=== PATIENT | male | born 1935 ===

== ENCOUNTER 2021-06-15 20:19 | Inpatient (IN) | payer SELFPAY ==
[2021-06-15] MEDS ORDERED: ONDANSETRON 4 MG/2 ML INJ IV ONE (23:06)
[2021-06-15] MEDS ORDERED: SODIUM CHLORIDE 0.9% 500 ML 500 ML IV ONE (23:06)
[2021-06-15] MEDS ORDERED: MORPHINE 4 MG/1 ML INJ IV ONE (23:06)
--- NOTE | 2021-06-15 23:07 | Event Note ---
ED Screening Note Date of service: 06/15/21 Time: 23:05 ED Screening Note: 86-year-old male with a past medical history of diabetes and hypertension presents to the ER today with complaints of mainly upper abdominal pain. Onset a couple days ago. Intermittent in nature but feels like is getting worse and he feels bloated. Reports decreased appetite today. States that he has not had a bowel movement in 3 to 4 days and thought his symptoms were related to constipation and so has been trying wvwn-dmy-lramfpt MiraLAX and mag citrate without relief. He denies any urinary symptoms. He denies any fever or chills. He denies any chest pain or shortness of breath. He states that he does have the left ureteral stent from 16 years ago. He is also had stones removed from his right kidney but this was done surgically. He denies any other abdominal surgeries. This initial assessment/diagnostic orders/clinical plan/treatment(s) is/are subject to change based on patients health status, clinical progression and re- assessment by fellow clinical providers in the ED. Further treatment and workup at subsequent clinical providers discretion. Patient/guardian urged not to elope from the ED as their condition may be serious if not clinically assessed and managed. Initial orders include: Abdominal pain order set
[2021-06-15 23:37] LABS: Basophils % (Auto) 0.6 % (0.0-1.8); Eosinophils # (Auto) 0.8 K/mm3 (0.0-0.4); Eosinophils % (Auto) 12.8 % (0.0-4.3); Hemoglobin 15.1 gm/dl (11.8-15.2); Lymphocytes # (Auto) 1.4 K/mm3 (1.2-5.4); Mean Corpuscular HGB Conc 34 % (32-34); Mean Corpuscular Volume 89 fl (84-94); Monocytes # (Auto) 0.6 K/mm3 (0.0-0.8); Monocytes % (Auto) 9.1 % (0.0-7.3); Platelet Count 174 K/mm3 (140-440); Red Blood Count 5.08 M/mm3 (3.65-5.03); Red Cell Distribution Width 14.2 % (13.2-15.2)
--- NOTE | 2021-06-15 23:39 | Emergency Department Report ---
HPI - General Chief Complaint: Abdominal Pain Time Seen by Provider: 06/15/21 23:13 - HPI HPI: 86-year-old male presents to the emergency department with a 3-day history of abdominal pain and constipation. He denies any fever, nausea vomiting, diarrhea, dysuria, back pain. The patient says that he has had this issue multiple times in the past but usually comes and goes. He says that this time the discomfort feels "different." He also has a history of hypertension and seu-yjjbcaz-dlryiiwui diabetes, and he has a left-sided ureteral stent. The pa solomon has tried some magnesium citrate and MiraLAX for his symptoms without any relief. No recent travel or sick contacts at home. ED Past Medical Hx - Past Medical History Hx Hypertension: Yes Hx Diabetes: Yes Hx Arthritis: Yes Hx Kidney Stones: Yes - Surgical History Past Surgical History?: Yes Additional Surgical History: Kidney stents - Social History Smoking Status: Never Smoker Substance Use Type: None - Medications Home Medications: Home Medications Medication Instructions Recorded Confirmed Last Taken Type Docusate Sodium [Colace] 100 mg PO BID PRN #20 capsule 06/16/21 Unknown Rx Glucophage 500 mg PO BID 06/17/21 06/17/21 06/13/21 History Losartan [Cozaar] 100 mg PO QDAY 06/17/21 06/17/21 06/13/21 History ED Review of Systems ROS: Stated complaint: LT FLANK PAIN Other details as noted in HPI Comment: All other systems reviewed and negative Constitutional: denies: chills, fever Eyes: denies: eye pain, vision change ENT: denies: ear pain, throat pain Respiratory: denies: cough, shortness of breath Cardiovascular: denies: chest pain, palpitations Gastrointestinal: abdominal pain, constipation. denies: nausea, vomiting Genitourinary: denies: discharge Musculoskeletal: denies: back pain, arthralgia Skin: denies: rash, lesions Neurological: denies: headache, weakness Physical Exam - Physical Exam Vital Signs: Vital Signs 06/15/21 06/15/21 21:48 23:32 Temperature 98.6 F Pulse Rate 69 Respiratory 16 18 Rate Blood Pressure 219/94 [Right] O2 Sat by Pulse 98 Oximetry Physical Exam: GENERAL: The patient is well-developed well-nourished. HENT: Normocephalic. Atraumatic. Patient has moist mucous membranes. EYES: Extraocular motions are intact. NECK: Supple. Trachea is midline. CHEST/LUNGS: Clear to auscultation. There is no respiratory distress noted. HEART/CARDIOVASCULAR: Regular. There is no tachycardia. There is no murmur. ABDOMEN: Abdomen is soft. Unable to reproduce his abdominal tenderness to palpation, but the patient does have intermittent wincing pain. Patient has hyperactive bowel sounds. Mild lower abdominal distention. No palpable midline mass. SKIN: Skin is warm and dry. NEURO: The patient is awake, alert, and oriented. The patient is cooperative. The patient has no focal neurologic deficits. Normal speech. MUSCULOSKELETAL: There is no tenderness or deformity. There is no limitation range of motion. ED Course Vital Signs 06/15/21 06/15/21 21:48 23:32 Temperature 98.6 F Pulse Rate 69 Respiratory 16 18 Rate Blood Pressure 219/94 [Right] O2 Sat by Pulse 98 Oximetry - Consultations Consultation #1: 06/16/21 02:57 I spoke to the general surgeon on-call, Dr. Morales, regarding the patient's abdominal pain, laboratory studies, and most significantly the CT of the abdomen and pelvis. Given the patient's age, comorbidities, continued abdominal pain, and the CT findings of colitis with dilated colon, Dr. Morales agrees with the plan for an observational admission and she will consult on the patient. ED Medical Decision Making - Lab Data Result diagrams: 06/17/21 05:45 06/17/21 05:45 Lab Results 06/15/21 06/15/21 06/15/21 Range/Units 23:22 23:22 23:27 WBC 6.1 (4.5-11.0) K/mm3 RBC 5.08 H (3.65-5.03) M/mm3 Hgb 15.1 (11.8-15.2) gm/dl Hct 45.0 (35.5-45.6) % MCV 89 (84-94) fl MCH 30 (28-32) pg MCHC 34 (32-34) % RDW 14.2 (13.2-15.2) % Plt Count 174 (140-440) K/mm3 Lymph % (Auto) 23.0 (13.4-35.0) % [place] % (Auto) 9.1 H (0.0-7.3) % Eos % (Auto) 12.8 H (0.0-4.3) % Baso % (Auto) 0.6 (0.0-1.8) % Lymph # (Auto) 1.4 (1.2-5.4) K/mm3 [place] # (Auto) 0.6 (0.0-0.8) K/mm3 Eos # (Auto) 0.8 H (0.0-0.4) K/mm3 Baso # (Auto) 0.0 (0.0-0.1) K/mm3 Seg Neutrophils % 54.5 (40.0-70.0) % Seg Neutrophils # 3.3 (1.8-7.7) K/mm3 Sodium 133 L (137-145) mmol/L Potassium 4.4 (3.6-5.0) mmol/L Chloride 95.5 L (98-107) mmol/L Carbon Dioxide 27 (22-30) mmol/L Anion Gap 15 mmol/L BUN 20 (9-20) mg/dL Creatinine 1.5 H (0.8-1.3) mg/dL Estimated GFR 45 ml/min BUN/Creatinine Ratio 13 % Glucose 225 H (75-100) mg/dL Calcium 9.4 (8.4-10.2) mg/dL Total Bilirubin 0.30 (0.1-1.2) mg/dL Direct Bilirubin < 0.2 (0-0.2) mg/dL Indirect Bilirubin 0.1 mg/dL AST 15 (5-40) units/L ALT 11 (7-56) units/L Alkaline Phosphatase 137 H (35-129) units/L Troponin T < 0.010 (0.00-0.029) ng/mL Total Protein 8.1 (6.3-8.2) g/dL Albumin 4.3 (3.9-5) g/dL Albumin/Globulin Ratio 1.1 % Lipase 32 (13-60) units/L - Radiology Data Radiology results: report reviewed CT ABDOMEN AND PELVIS WITHOUT CONTRAST HISTORY: Pt complains of abdominal pain. COMPARISON: None. TECHNIQUE: CT images of the abdomen and pelvis were obtained without administration of intravenous contrast. All CT scans at this location are performed using CT dose reduction for ALARA by means of automated exposure control. FINDINGS: Lungs/bones: Lung bases are clear Abdomen/pelvis: Within limits of a noncontrast examination the liver, spleen, adrenal glands and pancreas appear normal. Extensive calcifications are seen within the left kidney with large norris ccation lower stones in lower pole. Small cyst along the upper pole. Left ureteral stent is identified. Large calcifications and densities within the urinary bladder There is significant dilatation of the colon with fecal material some fluid levels. Some gas towards the wall is seen however this appears to be gas within the lumen rather than within the wall. The dilatation extends from the cecum to the descending colon. Mild there is marked wall thickening in the descending colon with multiple diverticula extending into the sigmoid colon. Wall thickening in the sigmoid colon as well. Degenerative change seen throughout the spine and hips IMPRESSION: 1. Marked dilatation of the colon loops to the level of the splenic flexure with fluid levels, fecal material and bowel wall thickening. There is severe thickening of the descending colon and sigmoid colon. Multiple diverticula are seen throughout to the level of the rectum. Inflammation wall thickening surrounding the entire colon is identified. The marked thickening of the descending colon results in obstruction height appearance of the more proximal colon with fluid levels identified. 2. Left double-J ureteral stent. Large calcifications are seen in left kidney. Large bladder calcifications are identified. - Medical Decision Making This patient presents with a 3-day history of generalized abdominal pain, worse in the lower quadrants, lower abdominal distention, and constipation. The patient has been using MiraLAX and magnesium citrate without any relief. Labs have been mostly unremarkable except for some mild renal insufficiency with a GFR of about 45. CT scan of the abdomen and pelvis without contrast shows generalized dilation of the colon, inflammatory changes of the colon, fluid levels and a large fecal burden, and some diverticulum. Patient has a history of hypertension and presents with very elevated blood pressure with a systolic of about 200. He was given a dose of IV hydralazine with some improvement. The patient was given IV analgesia. He was reevaluated multiple times over multiple hours and continues to have this spasmodic abdominal pain. Given the CT findings in this 86-year-old diabetic male, and after consultation with the general surgeon, the patient will be admitted to the hospital for an observational stay and was accepted for admission by the hospitalist, Dr. Robert. Critical Care Time: No Critical care attestation.: If time is entered above; I have spent that time in minutes in the direct care of this critically ill patient, excluding procedure time. ED Disposition Clinical Impression: Renal insufficiency, Intractable abdominal pain, Colitis, Dilatation of colon Hypertension Qualifiers: Hypertension type: primary hypertension Qualified Code(s): I10 - Essential (primary) hypertension Disposition: 09 ADMITTED INPATIENT Is pt being admited?: Yes Condition: Fair Time of Disposition: 02:58
[2021-06-16] MEDS ORDERED: hydrALAZINE 20 MG/1 ML INJ IV ONE (00:50)
[2021-06-16 00:51] LABS: Alanine Aminotransferase 11 units/L (7-56); Albumin 4.3 g/dL (3.9-5); BUN/Creatinine Ratio 13; Blood Urea Nitrogen 20 mg/dL (9-20); Calcium 9.4 mg/dL (8.4-10.2); Hemolysis Index 2
[2021-06-16 00:56] LABS: Bilirubin,Direct < 0.2 mg/dL (0-0.2)
--- NOTE | 2021-06-16 02:26 | Cat Scan Report ---
CT ABDOMEN AND PELVIS WITHOUT CONTRAST HISTORY: Pt complains of abdominal pain. COMPARISON: None. TECHNIQUE: CT images of the abdomen and pelvis were obtained without administration of intravenous co ntrast. All CT scans at this location are performed using CT dose reduction for ALARA by means of au tomated exposure control. FINDINGS: Lungs/bones: Lung bases are clear Abdomen/pelvis: Within limits of a noncontrast examination the liver, spleen, adrenal glands and harvey creas appear normal. Extensive calcifications are seen within the left kidney with large desiccation lower stones in lower pole. Small cyst along the upper pole. Left ureteral stent is identified. Large calcifications and densities within the urinary bladder There is significant dilatation of the colon with fecal material some fluid levels. Some gas towards the wall is seen however this appears to be gas within the lumen rather than within the wall. The dil atation extends from the cecum to the descending colon. Mild there is marked wall thickening in the d escending colon with multiple diverticula extending into the sigmoid colon. Wall thickening in the si gmoid colon as well. Degenerative change seen throughout the spine and hips IMPRESSION: 1. Marked dilatation of the colon loops to the level of the splenic flexure with fluid levels, fecal material and bowel wall thickening. There is severe thickening of the descending colon and sigmoid co joan. Multiple diverticula are seen throughout to the level of the rectum. Inflammation wall thickenin g surrounding the entire colon is identified. The marked thickening of the descending colon results i n obstruction height appearance of the more proximal colon with fluid levels identified. 2. Left double-J ureteral stent. Large calcifications are seen in left kidney. Large bladder calcific ations are identified. Signer Name: Parish Gilbert MD Signed: 06/16/2021 2:21 AM Workstation Name: [id number]
[2021-06-16] MEDS ORDERED: PIPERACILLIN/TAZOBACTAM 3.375 3.375 GM/50 ML BAG IV ONE (02:52)
[2021-06-16] MEDS ORDERED: SODIUM CHLORIDE 0.9% 500 ML 500 ML IV SCH (03:00)
--- NOTE | 2021-06-16 03:23 | History and Physical Report ---
History of Present Illness Date of examination: 06/16/21 Date of admission: 06/15/21 Chief complaint: intractable abdominal pain Colitis History of present illness: This is 86-year-old male seen in the ED at bedside. Patient's son is present at the time of assessment. Patient reported ongoing intractable abdominal pain. He describes the pain like it moves around his stomach from upper to lower area with audible sound sometimes. He reports constipation with the pain. Patient has a past medical history of of hypertension and his on blood pressure medicine. He denies any fever, nausea vomiting, diarrhea, dysuria, and back pain. The patient says that he has had this issue multiple times in the past but usually comes and goes. He says that this time the discomfort feels "different." He also has a history of ese-nwmoeqp-vicwprjqm diabetes, and he has a left-sided ureteral stent. Patient was given magnesium citrate and MiraLAX in the ED without any relief. CT of the abdomen is done-showed colitis: Dilatation of colon, inflammatory wall thickening surrounding the entire colon and thickening of the descending colon. It also showed a left double-J ureteral stent and large calcification seen in the left kidney. Patient denies alcohol use, tobacco use, and illicit drug use Past History Past Medical History: diabetes, hypertension Past Surgical History: Other (Hx of renal stent placement) Social history: full code. denies: smoking, alcohol abuse, prescription drug abuse, IV drug use Family history: diabetes, hypertension Medications and Allergies Allergies Allergy/AdvReac Type Severity Reaction Status Date / Time Penicillins Allergy Anaphylaxis Verified 06/16/21 03:39 red dye AdvReac Anaphylaxis Verified 06/15/21 21:43 Home Medications Medication Instructions Recorded Confirmed Last Taken Type Docusate Sodium [Colace] 100 mg PO BID PRN #20 capsule 06/16/21 Unknown Rx Active Meds: Active Medications Sodium Chloride (Nacl 0.9% 500 Ml) 500 mls @ 75 mls/hr IV DIRECT MARIANA Review of Systems Constitutional: anorexia Ears, nose, mouth and throat: no epistaxis, no bleeding gums Gastrointestinal: abdominal pain, constipation, change in bowel habits, indigestion, excessive gas, dyspepsia/bloating Rectal: no itching, no hemorrhoids Integumentary: no rash, no pruritis, no redness Psychiatric: anxiety Hematologic/Lymphatic: no easy bruising, no easy bleeding, no lymphadenopathy, no lymphedema Allergic/Immunologic: no urticaria Exam - Constitutional Vitals: Temp Pulse Resp BP Pulse Ox 98.3 F 67 16 199/98 98 06/16/21 00:52 06/16/21 01:15 06/16/21 01:15 06/16/21 01:15 06/16/21 01:15 General appearance: Present: mild distress, well-nourished - EENT Eyes: Present: PERRL ENT: hearing intact, clear oral mucosa - Neck Neck: Present: supple, normal ROM - Respiratory Respiratory effort: normal Respiratory: bilateral: CTA - Cardiovascular Heart Sounds: Present: S1 & S2. Absent: rub, click - Extremities Extremities: pulses symmetrical, No edema Peripheral Pulses: within normal limits - Abdominal General gastrointestinal: Present: soft, tender, non-distended, other (hypoactive) Localized gastrointestinal: tender: diffuse, RUQ, LUQ, RLQ, LLQ - Integumentary Integumentary: Present: clear, warm, dry - Musculoskeletal Musculoskeletal: gait normal, strength equal bilaterally - Psychiatric Psychiatric: appropriate mood/affect, intact judgment & insight, cooperative - Neurologic Neurologic: CNII-XII intact, moves all extremities - Allied Health Allied health notes reviewed: nursing HEART Score - HEART Score Troponin: Troponin T < 0.010 ng/mL (0.00-0.029) 06/15/21 23:27 Results - Labs CBC & Chem 7: 06/15/21 23:22 06/15/21 23:22 Labs: Abnormal lab results 06/15/21 06/15/21 Range/Units 23:22 23:22 RBC 5.08 H (3.65-5.03) M/mm3 [place] % (Auto) 9.1 H (0.0-7.3) % Eos % (Auto) 12.8 H (0.0-4.3) % Eos # (Auto) 0.8 H (0.0-0.4) K/mm3 Sodium 133 L (137-145) mmol/L Chloride 95.5 L (98-107) mmol/L Creatinine 1.5 H (0.8-1.3) mg/dL Glucose 225 H (75-100) mg/dL Alkaline Phosphatase 137 H (35-129) units/L Assessment and Plan - Patient Problems (1) Colitis Current Visit: Yes Status: Acute Plan to address problem: CT of the abdomen shows inflammation of the bowel with colon dilatation Patient is started on Levaquin. GI doctor has been consulted (2) Hypertension Current Visit: Yes Status: Acute Plan to address problem: Monitor blood pressure Resume home antihypertensivelosartan and hydrochlorothiazide As needed hydralazine (3) Intractable abdominal pain Current Visit: Yes Status: Acute Plan to address problem: Abdominal pain likely secondary to colitis and constipation Continue laxative as needed Pain management (4) Renal insufficiency Current Visit: Yes Status: Acute Plan to address problem: Monitor kidney function Continue gentle IV hydration (5) Constipation Current Visit: Yes Status: Acute Plan to address problem: Patient report chronic constipation CT of the abdomen show: colon Dilatation Continue as needed laxative and Reglan as needed GI has been consulted (6) DVT prophylaxis Current Visit: Yes Status: Acute Plan to address problem: Subcutaneous heparin
[2021-06-16] MEDS ORDERED: METOCLOPRAMIDE 10 MG/2 ML INJ IV PRN ×2 (03:38→03:55)
[2021-06-16] MEDS ORDERED: NALOXONE 0.4 MG/1 ML INJ IV PRN (03:38)
[2021-06-16] MEDS ORDERED: ACETAMINOPHEN 325 MG TAB PO PRN (03:38)
[2021-06-16] MEDS ORDERED: ALUM-MAG HYDROXIDE-SIMETHICONE 200-200-20MG/5ML ORAL LIQD 30 ML PO PRN (03:38)
[2021-06-16] MEDS ORDERED: MORPHINE 2 MG/1 ML INJ IV PRN (03:38)
[2021-06-16] MEDS ORDERED: ONDANSETRON 4 MG/2 ML INJ IV PRN (03:38)
[2021-06-16] MEDS ORDERED: MAGNESIUM HYDROXIDE (MOM) ORAL LIQD UDC PO PRN (03:38)
[2021-06-16] MEDS ORDERED: SENNOSIDES 8.6 MG TAB PO PRN (03:38)
[2021-06-16] MEDS ORDERED: hydrALAZINE 20 MG/1 ML INJ IV PRN ×2 (03:42→08:29)
[2021-06-16 03:53] LABS: Bilirubin,Urine NEG (Negative); Blood,Urine SM (Negative); Color,Urine Yellow (Yellow); Urobilinogen,Urine < 2.0 mg/dL (<2.0)
[2021-06-16] MEDS ORDERED: PIPERACIL/TAZOBACTA 4.5/NS 100 4.5 GM/100 ML VIAL IV SCH (04:00)
--- NOTE | 2021-06-16 08:39 | Progress Note ---
Assessment and Plan Assessment and plan: History of present illness: This is 86-year-old male with history of [id number] diabetes and left-sided ureteral stent reported ongoing intractable abdominal pain. He describes the pain like it moves around his stomach from upper to lower area with audible sound sometimes. He reports constipation with the pain. Patient has a past medical history of of hypertension and his on blood pressure medicine. He denies any fever, nausea vomiting, diarrhea, dysuria, and back pain. The patient says that he has had this issue multiple times in the past but usually comes and goes. He says that this time the discomfort feels "different." He also has a . Patient was given magnesium citrate and MiraLAX in the ED without any relief. Admitted to medical floor. Hospital course to date: 06/16: Can resume diet, advance as tolerated. GI will order golytly. Recommends cipro/flagyl. Anticipate d/c in next 24-48hrs. -Empiric antibiotics for diverticular disease with Cipro and Flagyl -Laxatives to try and get relief. Will try giving GoLYTELY. -Eventually, colonoscopy as an outpatient would be appropriate. Assessment and plan (1) Diverticulitis Current Visit: Yes Status: Acute Plan to address problem: CT of the abdomen on admission: Dilatation of colon, inflammatory wall thickening surrounding the entire colon and thickening of the descending colon. Cipro/Flagyl Will likely need c-scope in the future. GI consulted on admission General Surgery consulted on admission (2) Hypertension Current Visit: Yes Status: Acute Plan to address problem: Monitor blood pressure Resume home antihypertensivelosartan and hydrochlorothiazide As needed hydralazine (3) Intractable abdominal pain (improving) Current Visit: Yes Status: Acute Plan to address problem: Abdominal pain likely secondary to colitis and constipation Continue laxative as needed Pain management (4) Renal insufficiency Current Visit: Yes Status: Acute Plan to address problem: Monitor kidney function Continue gentle IV hydration (5) Constipation Current Visit: Yes Status: Acute Plan to address problem: Patient report chronic constipation CT of the abdomen show: colon Dilatation Continue as needed laxative and Reglan as needed GI has been consulted Golytly to be ordered by GI. (6) DVT prophylaxis Current Visit: Yes Status: Acute Plan to address problem: Subcutaneous heparin History Interval history: Complain of constipation on encounter this morning. He states he has not had a bowel movement for 4 days. She denies ever having a colonoscopy in his past. Hospitalist Physical - Physical exam Narrative exam: Physical Exam: VITAL SIGNS: Reviewed. GENERAL: The patient appears normally developed, Vital signs as documented. HEAD: No signs of head trauma. EYES: Pupils are equal. Extraocular motions intact. EARS: Hearing grossly intact. MOUTH: Oropharynx is normal. NECK: No adenopathy, no JVD. CHEST: Chest with clear breath sounds bilaterally. No wheezes, rales, or rhonchi. CARDIAC: Regular rate and rhythm. S1 and S2, without murmurs, gallops, or rubs. VASCULAR: No Edema. Peripheral pulses normal and equal in all extremities. ABDOMEN: Soft, non tender and non distended. No rebound or guarding, and no masses palpated. Bowel Sounds normal. MUSCULOSKELETAL: Good range of motion of all major joints. Extremities without clubbing, cyanosis or edema. NEUROLOGIC EXAM: Alert although orientation could not be verified as patient withdrawn no focal sensory or strength deficits. PSYCHIATRIC: Mood normal. SKIN: detail exam as documented in skin assessment - Constitutional Vitals: Temp Pulse Resp BP Pulse Ox 98.9 F 70 18 147/64 97 06/16/21 05:02 06/16/21 05:02 06/16/21 05:02 06/16/21 05:02 06/16/21 05:02 General appearance: Present: mild distress, well-nourished HEART Score - HEART Score Troponin: Troponin T < 0.010 ng/mL (0.00-0.029) 06/15/21 23:27 Results - Labs CBC & Chem 7: 06/15/21 23:22 06/15/21 23:22 Labs: Laboratory Last Values WBC 6.1 K/mm3 (4.5-11.0) 06/15/21 23:22 RBC 5.08 M/mm3 (3.65-5.03) H 06/15/21 23:22 Hgb 15.1 gm/dl (11.8-15.2) 06/15/21 23:22 Hct 45.0 % (35.5-45.6) 06/15/21 23:22 MCV 89 fl (84-94) 06/15/21 23:22 MCH 30 pg (28-32) 06/15/21 23:22 MCHC 34 % (32-34) 06/15/21 23:22 RDW 14.2 % (13.2-15.2) 06/15/21 23:22 Plt Count 174 K/mm3 (140-440) 06/15/21 23:22 Lymph % (Auto) 23.0 % (13.4-35.0) 06/15/21 23:22 [place] % (Auto) 9.1 % (0.0-7.3) H 06/15/21 23:22 Eos % (Auto) 12.8 % (0.0-4.3) H 06/15/21 23:22 Baso % (Auto) 0.6 % (0.0-1.8) 06/15/21 23: Lymph # (Auto) 1.4 K/mm3 (1.2-5.4) 06/15/21 23:22 [place] # (Auto) 0.6 K/mm3 (0.0-0.8) 06/15/21 23:22 Eos # (Auto) 0.8 K/mm3 (0.0-0.4) H 06/15/21 23:22 Baso # (Auto) 0.0 K/mm3 (0.0-0.1) 06/15/21 23: Seg Neutrophils % 54.5 % (40.0-70.0) 06/15/21 23:22 Seg Neutrophils # 3.3 K/mm3 (1.8-7.7) 06/15/21 23:22 Sodium 133 mmol/L (137-145) L 06/15/21 23:22 Potassium 4.4 mmol/L (3.6-5.0) 06/15/21 23:22 Chloride 95.5 mmol/L (98-107) L 06/15/21 23:22 Carbon Dioxide 27 mmol/L (22-30) 06/15/21 23:22 Anion Gap 15 mmol/L 06/15/21 23:22 BUN 20 mg/dL (9-20) 06/15/21 23:22 Creatinine 1.5 mg/dL (0.8-1.3) H 06/15/21 23:22 Estimated GFR 45 ml/min 06/15/21 23:22 BUN/Creatinine Ratio 13 % 06/15/21 23:22 Glucose 225 mg/dL (75-100) H 06/15/21 23:22 Hemoglobin A1c 8.3 % (4-6) H 06/15/21 23:22 Calcium 9.4 mg/dL (8.4-10.2) 06/15/21 23:22 Total Bilirubin 0.30 mg/dL (0.1-1.2) 06/15/21 23:22 Direct Bilirubin < 0.2 mg/dL (0-0.2) 06/15/21 23:22 Indirect Bilirubin 0.1 mg/dL 06/15/21 23:22 AST 15 units/L (5-40) 06/15/21 23:22 ALT 11 units/L (7-56) 06/15/21 23:22 Alkaline Phosphatase 137 units/L (35-129) H 06/15/21 23:22 Troponin T < 0.010 ng/mL (0.00-0.029) 06/15/21 23:27 Total Protein 8.1 g/dL (6.3-8.2) 06/15/21 23:22 Albumin 4.3 g/dL (3.9-5) 06/15/21 23:22 Albumin/Globulin Ratio 1.1 % 06/15/21 23:22 Lipase 32 units/L (13-60) 06/15/21 23:22 Urine Color Yellow (Yellow) 06/16/21 02:33 Urine Turbidity Clear (Clear) 06/16/21 02:33 Urine pH 6.0 (5.0-7.0) 06/16/21 02:33 Ur Specific [place] 1.011 (1.003-1.030) 06/16/21 02:33 Urine Protein 30 mg/dl mg/dL (Negative) 06/16/21 02:33 Urine Glucose (UA) 50 mg/dL (Negative) 06/16/21 02:33 Urine Ketones Neg mg/dL (Negative) 06/16/21 02:33 Urine Blood Sm (Negative) 06/16/21 02:33 Urine Nitrite Neg (Negative) 06/16/21 02:33 Urine Bilirubin Neg (Negative) 06/16/21 02:33 Urine Urobilinogen < 2.0 mg/dL (<2.0) 06/16/21 02:33 Ur Leukocyte Esterase Mod (Negative) 06/16/21 02:33 Urine WBC (Auto) 15.0 /HPF (0.0-6.0) H 06/16/21 02:33 Urine RBC (Auto) 1.0 /HPF (0.0-6.0) 06/16/21 02:33 U Epithel Cells (Auto) 1.0 /HPF (0-13.0) 06/16/21 02:33 Urine Yeast (Budding) 1+ /HPF 06/16/21 02:33 Active Medications - Current Medications Current Medications: Generic Name Dose Route Start Last Admin Trade Name Freq PRN Reason Stop Dose Admin Acetaminophen 650 mg 06/16/21 03:38 Acetaminophen 325 Mg Tab PO Q4H PRN Pain MILD(1-3)/Fever >100.5/CERDA Al Hydrox/Mg Hydrox/Simethicone 30 ml 06/16/21 03:38 Alum-Mag Hydroxide-Simethicone [id number]/5ml Oral Liqd 30 Ml PO Q4H PRN Indigestion Famotidine 20 mg 06/16/21 10:00 Famotidine 20 Mg/2 Ml Inj IV DAILY [facility] Heparin Sodium (Porcine) 5,000 unit 06/16/21 10:00 Heparin 5,000 Unit/1 Ml Vial SUB-Q Q12HR MARIANA Hydralazine HCl 10 mg 06/16/21 08:29 Hydralazine 20 Mg/1 Ml Inj IV Q4HR PRN SBP > 160 Hydrochlorothiazide 25 mg 06/16/21 10:00 Hydrochlorothiazide 25 Mg Tab PO QDAY MARIANA Sodium Chloride 500 mls @ 75 mls/hr 06/16/21 03:00 06/16/21 05:45 Nacl 0.9% 500 Ml IV 75 mls/hr DIRECT MARIANA Administration Levofloxacin/Dextrose 250 mg in 50 mls @ 50 mls/hr 06/17/21 06:00 06/16/21 07:16 Levaquin 250mg/50ml IV Infused Q24H MARIANA Infusion Metronidazole 500 mg in 100 mls @ 100 mls/hr 06/16/21 08:00 Flagyl 500 Mg/100 Ml IV Q8H MARIANA Protocol Losartan Potassium 100 mg 06/16/21 10:00 Losartan 50 Mg Tab PO QDAY MARIANA Magnesium Hydroxide 30 ml 06/16/21 03:38 Magnesium Hydroxide (Mom) Oral Liqd Udc PO Q4H PRN Constipation Metoclopramide HCl 5 mg 06/16/21 03:55 Metoclopramide 10 Mg/2 Ml Inj IV Q6H PRN Nausea And Vomiting Morphine Sulfate 2 mg 06/16/21 03:38 06/16/21 05:44 Morphine 2 Mg/1 Ml Inj IV 2 mg Q4H PRN Administration Pain, Moderate (4-6) Naloxone HCl 0.1 mg 06/16/21 03:38 Naloxone 0.4 Mg/1 Ml Inj IV Q2MIN PRN Res Rate </= 8 or 02 SAT < 92% Ondansetron HCl 4 mg 06/16/21 03:38 Ondansetron 4 Mg/2 Ml Inj IV Q8H PRN Nausea And Vomiting Oxycodone/Acetaminophen 1 tab 06/16/21 03:38 Oxycodone /Acetaminophen 5-325mg Tab PO Q6H PRN Pain, Moderate (4-6) Senna 8.6 mg 06/16/21 03:38 Sennosides 8.6 Mg Tab PO Q12HR PRN Constipation Sodium Chloride 10 ml 06/16/21 10:00 Sodium Chloride 0.9% 10 Ml Flush Syringe IV BID MARIANA
[2021-06-16] MEDS: hydroCHLOROthiazide 25 MG TAB PO SCH (09:11)
[2021-06-16] MEDS: LOSARTAN 50 MG TAB PO SCH (09:12)
[2021-06-16] MEDS: metroNIDAZOLE/NS 500 MG/100 ML 500 MG/100 ML BAG IV SCH ×2 (09:12→18:46)
[2021-06-16] MEDS: FAMOTIDINE 20 MG/2 ML INJ IV SCH (09:12)
[2021-06-16] MEDS: HEPARIN 5,000 UNIT/1 ML VIAL SUB-Q SCH ×2 (09:13→22:02)
[2021-06-16] MEDS ORDERED: FAMOTIDINE 20 MG/2 ML INJ IV SCH (10:00)
--- NOTE | 2021-06-16 13:01 | Consultation ---
History of Present Illness - Reason for Consult Consult date: 06/16/[address] scan Requesting physician: LEO SMITH - History of Present Illness Mr. Lemus is an 86-year-old [facility] man who presented with a 3-day history of abdominal pain in his upper abdomen primarily left side, as well as constipation. He states that he was in his usual state of good health until 3 or 4 days ago, with bowel movements occurring usually on a daily basis. Over the last 3 days, he has been constipated and has failed to respond to magnesium citrate or MiraLAX. He notes upper abdominal pain that can migrate in a colicky fashion but seems to be most prevalent in the upper abdomen towards the left side. He denies any fevers chills sweats or GI bleeding. He has not had any nausea or vomiting. He has lost 10 pounds over the last 3 to 6 months, but this occurred after starting Metformin. He has no family history of colon cancer. He has never undergone a colonoscopy before. Medications reviewed. Past History Past Medical History: diabetes, hypertension, other (Kidney stones) Past Surgical History: Other (Hx of renal stent placement -stents present x16 years and not removed due to problems with anesthesia, according to patient.) Social history: full code. denies: smoking, alcohol abuse, prescription drug abuse, IV drug use Family history: diabetes, hypertension Medications and Allergies Allergies Allergy/AdvReac Type Severity Reaction Status Date / Time Penicillins Allergy Anaphylaxis Verified 06/16/21 03:39 red dye AdvReac Anaphylaxis Verified 06/15/21 21:43 Home Medications Medication Instructions Recorded Confirmed Last Taken Type Docusate Sodium [Colace] 100 mg PO BID PRN #20 capsule 06/16/21 Unknown Rx Active Meds: Active Medications Acetaminophen (Acetaminophen 325 Mg Tab) 650 mg PO Q4H PRN PRN Reason: Pain MILD(1-3)/Fever >100.5/CERDA Al Hydrox/Mg Hydrox/Simethicone (Alum-Mag Hydroxide-Simethicone [id number]/5ml Oral Liqd 30 Ml) 30 ml PO Q4H PRN PRN Reason: Indigestion Famotidine (Famotidine 20 Mg/2 Ml Inj) 20 mg IV DAILY [facility]IANA Last Admin: 06/16/21 09:12 Dose: 20 mg Documented by: Heparin Sodium (Porcine) (Heparin 5,000 Unit/1 Ml Vial) 5,000 unit SUB-Q Q12HR [facility] Last Admin: 06/16/21 09:13 Dose: 5,000 unit Documented by: Hydralazine HCl (Hydralazine 20 Mg/1 Ml Inj) 10 mg IV Q4HR PRN PRN Reason: SBP > 160 Hydrochlorothiazide (Hydrochlorothiazide 25 Mg Tab) 25 mg PO QDAY [facility] Last Admin: 06/16/21 09:11 Dose: 25 mg Documented by: Sodium Chloride (Nacl 0.9% 500 Ml) 500 mls @ 75 mls/hr IV DIRECT [facility] Last Admin: 06/16/21 05:45 Dose: 75 mls/hr Documented by: Levofloxacin/Dextrose (Levaquin 250mg/50ml) 250 mg in 50 mls @ 50 mls/hr IV Q24H [facility] Last Infusion: 06/16/21 07:16 Dose: Infused Documented by: Metronidazole (Flagyl 500 Mg/100 Ml) 500 mg in 100 mls @ 100 mls/hr IV Q8H [facility]; Protocol Last Admin: 06/16/21 09:12 Dose: 100 mls/hr Documented by: Losartan Potassium (Losartan 50 Mg Tab) 100 mg PO QDAY [facility] Last Admin: 06/16/21 09:12 Dose: 100 mg Documented by: Magnesium Hydroxide (Magnesium Hydroxide (Mom) Oral Liqd Udc) 30 ml PO Q4H PRN PRN Reason: Constipation Metoclopramide HCl (Metoclopramide 10 Mg/2 Ml Inj) 5 mg IV Q6H PRN PRN Reason: Nausea And Vomiting Morphine Sulfate (Morphine 2 Mg/1 Ml Inj) 2 mg IV Q4H PRN PRN Reason: Pain, Moderate (4-6) Last Admin: 06/16/21 05:44 Dose: 2 mg Documented by: Naloxone HCl (Naloxone 0.4 Mg/1 Ml Inj) 0.1 mg IV Q2MIN PRN PRN Reason: Res Rate </= 8 or 02 SAT < 92% Ondansetron HCl (Ondansetron 4 Mg/2 Ml Inj) 4 mg IV Q8H PRN PRN Reason: Nausea And Vomiting Oxycodone/Acetaminophen (Oxycodone /Acetaminophen 5-325mg Tab) 1 tab PO Q6H PRN PRN Reason: Pain, Moderate (4-6) Senna (Sennosides 8.6 Mg Tab) 8.6 mg PO Q12HR PRN PRN Reason: Constipation Sodium Chloride (Sodium Chloride 0.9% 10 Ml Flush Syringe) 10 ml IV BID MARIANA Last Admin: 06/16/21 09:13 Dose: 10 ml Documented by: Review of Systems All systems: negative (as per HPI) Exam - Constitutional Vitals: Temp Pulse Resp BP Pulse Ox 98.9 F 70 18 147/64 97 06/16/21 05:02 06/16/21 05:02 06/16/21 05:02 06/16/21 09:12 06/16/21 05:02 General appearance: Present: no acute distress - EENT Eyes: Present: PERRL, EOM intact ENT: hearing intact - Respiratory Respiratory effort: normal Respiratory: bilateral: CTA - Cardiovascular Rhythm: regular Heart Sounds: Present: S1 & S2 - Extremities Extremities: No edema - Abdominal General gastrointestinal: Present: soft, non-tender, normal bowel sounds Results - Labs CBC & Chem 7: 06/15/21 23:22 06/15/21 23:22 Labs: Abnormal lab results 06/15/21 06/15/21 06/15/21 Range/Units 23:22 23:22 23:22 RBC 5.08 H (3.65-5.03) M/mm3 [place] % (Auto) 9.1 H (0.0-7.3) % Eos % (Auto) 12.8 H (0.0-4.3) % Eos # (Auto) 0.8 H (0.0-0.4) K/mm3 Sodium 133 L (137-145) mmol/L Chloride 95.5 L (98-107) mmol/L Creatinine 1.5 H (0.8-1.3) mg/dL Glucose 225 H (75-100) mg/dL POC Glucose (70-105) mg/dL Hemoglobin A1c 8.3 H (4-6) % Alkaline Phosphatase 137 H (35-129) units/L Urine WBC (Auto) (0.0-6.0) /HPF 06/16/21 06/16/21 Range/Units 02:33 11:36 RBC (3.65-5.03) M/mm3 [place] % (Auto) (0.0-7.3) % Eos % (Auto) (0.0-4.3) % Eos # (Auto) (0.0-0.4) K/mm3 Sodium (137-145) mmol/L Chloride (98-107) mmol/L Creatinine (0.8-1.3) mg/dL Glucose (75-100) mg/dL POC Glucose 180 H (70-105) mg/dL Hemoglobin A1c (4-6) % Alkaline Phosphatase (35-129) units/L Urine WBC (Auto) 15.0 H (0.0-6.0) /HPF - Imaging and Cardiology CT scan - abdomen: report reviewed (distended colon to splenic flexure, with diffuse thickening of descending and sigmoid colon with inflammation) Assessment and Plan 1. Abnormal CT scan of colon -with findings consistent with constipation and left-sided colon thickening. CT notes inflammation suggesting that patient may have diverticulitis. Given the relatively acute nature of onset of symptoms, and lack of other generalized symptoms, neoplastic process is less likely. -Empiric antibiotics for diverticular disease with Cipro and Flagyl -Laxatives to try and get relief. Will try giving GoLYTELY. -Eventually, colonoscopy as an outpatient would be appropriate.
[2021-06-16] MEDS ORDERED: POLYETHYLENE GLYCOL/ELECT SOLN 4000 ML PO NR (14:00)
[2021-06-16] MEDS: oxyCODONE /ACETAMINOPHEN 5-325MG TAB PO PRN ×2 (15:31→23:19)
--- NOTE | 2021-06-16 17:11 | Consultation ---
History of Present Illness Consult date: 06/16/21 Reason for consult: abdominal pain Chief complaint: Abdominal pain - History of present illness History of present illness: 86-year-old male with a past medical history of kidney stones who presents to the emergency room with complaints of diffuse abdominal pain for the last 3 days. The patient states that the pain moves all over his abdomen but is currently located in left upper quadrant. It is crampy in nature and feels like gas at times. He states he has never had pain like this in the past. He does also complain of difficulty having a bowel movement. His last bowel movement was 3 days ago and was smaller than usual. No nausea or vomiting. He denies fevers or chills. Patient states he has never had a colonoscopy. Past History Past Medical History: diabetes, hypertension, other (Kidney stones) Past Surgical History: Other (Hx of renal stent placement -stents present x16 years and not removed due to problems with anesthesia, according to patient.) Social history: full code. denies: smoking, alcohol abuse, prescription drug abuse, IV drug use Family history: diabetes, hypertension Medications and Allergies Allergies Allergy/AdvReac Type Severity Reaction Status Date / Time Penicillins Allergy Anaphylaxis Verified 06/16/21 03:39 red dye AdvReac Anaphylaxis Verified 06/15/21 21:43 Home Medications Medication Instructions Recorded Confirmed Last Taken Type Docusate Sodium [Colace] 100 mg PO BID PRN #20 capsule 06/16/21 Unknown Rx Active Meds: Active Medications Acetaminophen (Acetaminophen 325 Mg Tab) 650 mg PO Q4H PRN PRN Reason: Pain MILD(1-3)/Fever >100.5/CERDA Al Hydrox/Mg Hydrox/Simethicone (Alum-Mag Hydroxide-Simethicone [id number]/5ml Oral Liqd 30 Ml) 30 ml PO Q4H PRN PRN Reason: Indigestion Famotidine (Famotidine 20 Mg/2 Ml Inj) 20 mg IV DAILY [facility] Last Admin: 06/16/21 09:12 Dose: 20 mg Documented by: Heparin Sodium (Porcine) (Heparin 5,000 Unit/1 Ml Vial) 5,000 unit SUB-Q Q12HR [facility] Last Admin: 06/16/21 09:13 Dose: 5,000 unit Documented by: Hydralazine HCl (Hydralazine 20 Mg/1 Ml Inj) 10 mg IV Q4HR PRN PRN Reason: SBP > 160 Hydrochlorothiazide (Hydrochlorothiazide 25 Mg Tab) 25 mg PO QDAY [facility] Last Admin: 06/16/21 09:11 Dose: 25 mg Documented by: Sodium Chloride (Nacl 0.9% 500 Ml) 500 mls @ 75 mls/hr IV DIRECT [facility]IANA Last Admin: 06/16/21 05:45 Dose: 75 mls/hr Documented by: Metronidazole (Flagyl 500 Mg/100 Ml) 500 mg in 100 mls @ 100 mls/hr IV Q8H MARIANA; Protocol Last Admin: 06/16/21 09:12 Dose: 100 mls/hr Documented by: Ketorolac Tromethamine (Ketorolac 30 Mg/1 Ml Inj) 15 mg IV Q6HR PRN PRN Reason: Pain, Moderate (4-6) Stop: 06/21/21 17:59 Levofloxacin (Levofloxacin 500 Mg Tab) 500 mg PO Q48HR [facility]; Protocol Losartan Potassium (Losartan 50 Mg Tab) 100 mg PO QDAY [facility] Last Admin: 06/16/21 09:12 Dose: 100 mg Documented by: Magnesium Hydroxide (Magnesium Hydroxide (Mom) Oral Liqd Udc) 30 ml PO Q4H PRN PRN Reason: Constipation Metoclopramide HCl (Metoclopramide 10 Mg/2 Ml Inj) 5 mg IV Q6H PRN PRN Reason: Nausea And Vomiting Morphine Sulfate (Morphine 2 Mg/1 Ml Inj) 2 mg IV Q4H PRN PRN Reason: Pain , Severe (7-10) Last Admin: 06/16/21 05:44 Dose: 2 mg Documented by: Naloxone HCl (Naloxone 0.4 Mg/1 Ml Inj) 0.1 mg IV Q2MIN PRN PRN Reason: Res Rate </= 8 or 02 SAT < 92% Ondansetron HCl (Ondansetron 4 Mg/2 Ml Inj) 4 mg IV Q8H PRN PRN Reason: Nausea And Vomiting Oxycodone/Acetaminophen (Oxycodone /Acetaminophen 5-325mg Tab) 1 tab PO Q6H PRN PRN Reason: Pain, Moderate (4-6) Last Admin: 06/16/21 15:31 Dose: 1 tab Documented by: Polyethylene Glycol/Electrolytes (Polyethylene Glycol/Elect Soln 4000 Ml) 4,000 ml PO ONCE@1400 NR Stop: 06/16/21 20:00 Last Admin: 06/16/21 14:49 Dose: 4,000 ml Documented by: Senna (Sennosides 8.6 Mg Tab) 8.6 mg PO Q12HR PRN PRN Reason: Constipation Sodium Chloride (Sodium Chloride 0.9% 10 Ml Flush Syringe) 10 ml IV BID [facility]IANA Last Admin: 06/16/21 09:13 Dose: 10 ml Documented by: Review of Systems All systems: negative (10 point ROS performed and negative except for that listed in HPI) Exam Vital Signs Temp Pulse Resp BP Pulse Ox 98.6 F 69 16 219/94 98 06/15/21 21:48 06/15/21 21:48 06/15/21 21:48 06/15/21 21:48 06/15/21 21:48 Narrative exam: Gen.: Awake, alert, oriented x3. Mild distress due to abdominal pain. ENT: Trachea midline. No lymphadenopathy. No scleral icterus or conjunctival pallor CV: S1, S2 present Respiratory: No audible wheezes Abdomen: Soft, nondistended, mild tenderness palpation left upper quadrant. No rebound, rigidity, guarding Extremities: No clubbing, cyanosis, edema Results - Labs 06/15/21 23:22 06/15/21 23:22 Abnormal lab results 06/15/21 06/15/21 06/15/21 Range/Units 23:22 23:22 23:22 RBC 5.08 H (3.65-5.03) M/mm3 [place] % (Auto) 9.1 H (0.0-7.3) % Eos % (Auto) 12.8 H (0.0-4.3) % Eos # (Auto) 0.8 H (0.0-0.4) K/mm3 Sodium 133 L (137-145) mmol/L Chloride 95.5 L (98-107) mmol/L Creatinine 1.5 H (0.8-1.3) mg/dL Glucose 225 H (75-100) mg/dL POC Glucose (70-105) mg/dL Hemoglobin A1c 8.3 H (4-6) % Alkaline Phosphatase 137 H (35-129) units/L Urine WBC (Auto) (0.0-6.0) /HPF 06/16/21 06/16/21 Range/Units 02:33 11:36 RBC (3.65-5.03) M/mm3 [place] % (Auto) (0.0-7.3) % Eos % (Auto) (0.0-4.3) % Eos # (Auto) (0.0-0.4) K/mm3 Sodium (137-145) mmol/L Chloride (98-107) mmol/L Creatinine (0.8-1.3) mg/dL Glucose (75-100) mg/dL POC Glucose 180 H (70-105) mg/dL Hemoglobin A1c (4-6) % Alkaline Phosphatase (35-129) units/L Urine WBC (Auto) 15.0 H (0.0-6.0) /HPF Diabetes panel 06/15/21 06/15/21 Range/Units 23:22 23:22 Sodium 133 L (137-145) mmol/L Potassium 4.4 (3.6-5.0) mmol/L Chloride 95.5 L (98-107) mmol/L Carbon Dioxide 27 (22-30) mmol/L BUN 20 (9-20) mg/dL Creatinine 1.5 H (0.8-1.3) mg/dL Glucose 225 H (75-100) mg/dL Hemoglobin A1c 8.3 H (4-6) % Calcium 9.4 (8.4-10.2) mg/dL AST 15 (5-40) units/L ALT 11 (7-56) units/L Alkaline Phosphatase 137 H (35-129) units/L Total Protein 8.1 (6.3-8.2) g/dL Albumin 4.3 (3.9-5) g/dL Calcium panel 06/15/21 Range/Units 23:22 Calcium 9.4 (8.4-10.2) mg/dL Albumin 4.3 (3.9-5) g/dL Pituitary panel 06/15/21 Range/Units 23:22 Sodium 133 L (137-145) mmol/L Potassium 4.4 (3.6-5.0) mmol/L Chloride 95.5 L (98-107) mmol/L Carbon Dioxide 27 (22-30) mmol/L BUN 20 (9-20) mg/dL Creatinine 1.5 H (0.8-1.3) mg/dL Glucose 225 H (75-100) mg/dL Calcium 9.4 (8.4-10.2) mg/dL Adrenal panel 06/15/21 Range/Units 23:22 Sodium 133 L (137-145) mmol/L Potassium 4.4 (3.6-5.0) mmol/L Chloride 95.5 L (98-107) mmol/L Carbon Dioxide 27 (22-30) mmol/L BUN 20 (9-20) mg/dL Creatinine 1.5 H (0.8-1.3) mg/dL Glucose 225 H (75-100) mg/dL Calcium 9.4 (8.4-10.2) mg/dL Total Bilirubin 0.30 (0.1-1.2) mg/dL AST 15 (5-40) units/L ALT 11 (7-56) units/L Alkaline Phosphatase 137 H (35-129) units/L Total Protein 8.1 (6.3-8.2) g/dL Albumin 4.3 (3.9-5) g/dL - Imaging CT scan - abdomen: report reviewed, image reviewed CT scan - pelvis: report reviewed, image reviewed Assessment and Plan 86-year-old male with 1. L sided colitis 2. diverticulosis 3. constipation Pt stable. Afebrile. Plan: 1. CLD-> adv slowly as tiara 2. laxative as tiara 3. IV abx 4. prn pain control - pt refusing morphine. Will order toradol as needed 5. IVF 6. repeat labs in am 7. Agree with GI recommendations - eventual cscope as outpatient Discussed plan with patient. He is very reluctant to undergo any type of procedure or surgery. Will follow. Thank you for this consultation. Please call with any questions or concerns. Evaluation and treatment of this patient was during the time of the national and state emergency arising from COVID19 coronavirus pandemic. Treatment and procedures performed meet the current and available best practice and guidelines for patient during the COVID pandemic.
[2021-06-17] MEDS: oxyCODONE /ACETAMINOPHEN 5-325MG TAB PO PRN ×2 (06:02→12:20)
[2021-06-17 06:15] LABS: Basophils % (Auto) 0.5 % (0.0-1.8); Eosinophils # (Auto) 0.2 K/mm3 (0.0-0.4); Eosinophils % (Auto) 3.2 % (0.0-4.3); Hematocrit 44.1 % (35.5-45.6); Hemoglobin 15.2 gm/dl (11.8-15.2); Lymphocytes # (Auto) 1.2 K/mm3 (1.2-5.4); Lymphocytes % (Auto) 18.7 % (13.4-35.0); Mean Corpuscular HGB Conc 35 % (32-34); Mean Corpuscular Volume 86 fl (84-94); Monocytes # (Auto) 0.5 K/mm3 (0.0-0.8); Monocytes % (Auto) 8.5 % (0.0-7.3); Red Blood Count 5.12 M/mm3 (3.65-5.03); Red Cell Distribution Width 14.2 % (13.2-15.2)
[2021-06-17 06:26] LABS: Albumin 3.8 g/dL (3.9-5)
[2021-06-17 06:29] LABS: Platelet Count 172 K/mm3 (140-440)
[2021-06-17] MEDS ORDERED: MINERAL OIL ENEMA 133 ML PR NR (09:00)
[2021-06-17] MEDS: KETOROLAC 30 MG/1 ML INJ IV PRN ×2 (09:42→21:51)
[2021-06-17] MEDS: hydroCHLOROthiazide 25 MG TAB PO SCH (09:43)
[2021-06-17] MEDS: LOSARTAN 50 MG TAB PO SCH (09:44)
[2021-06-17] MEDS: FAMOTIDINE 20 MG/2 ML INJ IV SCH (09:45)
[2021-06-17] MEDS: metroNIDAZOLE/NS 500 MG/100 ML 500 MG/100 ML BAG IV SCH ×3 (09:46→16:24)
[2021-06-17] MEDS ORDERED: levoFLOXacin 500 MG TAB PO SCH (10:00)
[2021-06-17] MEDS: HEPARIN 5,000 UNIT/1 ML VIAL SUB-Q SCH ×2 (10:10→21:52)
--- NOTE | 2021-06-17 10:46 | Progress Note ---
Assessment and Plan 1. Abnormal CT scan of colon -with findings consistent with constipation and left-sided colon thickening. CT notes inflammation suggesting that patient may have diverticulitis. Given the relatively acute nature of onset of symptoms, and lack of other generalized symptoms, neoplastic process is less likely. -Empiric antibiotics for diverticular disease with Cipro and Flagyl -Golytely not tolerated. Will give Dulcolax suppository. -Eventually, if does well, colonoscopy as an outpatient would be appropriate. Subjective Date of service: 06/17/21 Interval history: Pt tried drinking Golytely, but quit after vomiting x 3. Has intermittent abd pain. No BM yet. Objective - Constitutional Vitals: Vital Signs - 12hr 06/16/21 06/17/21 06/17/21 23:01 01:00 05:05 Temperature 98.2 F 98.5 F Pulse Rate 82 61 Respiratory 20 20 Rate Blood Pressure 183/102 158/72 O2 Sat by Pulse 96 96 94 Oximetry 06/17/21 09:44 Temperature Pulse Rate 61 Respiratory Rate Blood Pressure 158/72 O2 Sat by Pulse Oximetry General appearance: Present: mild distress - EENT Eyes: PERRL, EOM intact ENT: hearing intact - Respiratory Respiratory effort: normal - Gastrointestinal General gastrointestinal: Present: soft, tender (Mild, diffuse, increased BS) - Labs CBC & Chem 7: 06/17/21 05:45 06/17/21 05:45 Labs: Abnormal lab results 06/16/21 06/16/21 06/17/21 Range/Units 11:36 22:58 05:45 RBC 5.12 H (3.65-5.03) M/mm3 MCHC 35 H (32-34) % Long % (Auto) 8.5 H (0.0-7.3) % Sodium (137-145) mmol/L Creatinine (0.8-1.3) mg/dL Glucose (75-100) mg/dL POC Glucose 180 H 199 H (70-105) mg/dL Alkaline Phosphatase (35-129) units/L Albumin (3.9-5) g/dL 06/17/21 06/17/21 Range/Units 05:45 07:52 RBC (3.65-5.03) M/mm3 MCHC (32-34) % Long % (Auto) (0.0-7.3) % Sodium 136 L (137-145) mmol/L Creatinine 1.4 H (0.8-1.3) mg/dL Glucose 172 H (75-100) mg/dL POC Glucose 165 H (70-105) mg/dL Alkaline Phosphatase 131 H (35-129) units/L Albumin 3.8 L (3.9-5) g/dL Medications & Allergies - Medications Allergies/Adverse Reactions: Allergies Penicillins Allergy (Verified 06/16/21 03:39) Anaphylaxis red dye Adverse Reaction (Verified 06/15/21 21:43) Anaphylaxis Home Medications: Home Medications Medication Instructions Recorded Confirmed Last Taken Type Docusate Sodium [Colace] 100 mg PO BID PRN #20 capsule 06/16/21 Unknown Rx Glucophage 500 PO BID 06/17/21 06/13/21 History Losartan [Cozaar] 100 mg PO QDAY 06/17/21 06/17/21 06/13/21 History Active Medications: Generic Name Dose Route Start Last Admin Trade Name Freq PRN Reason Stop Dose Admin Acetaminophen 650 mg 06/16/21 03:38 Acetaminophen 325 Mg Tab PO Q4H PRN Pain MILD(1-3)/Fever >100.5/CERDA Al Hydrox/Mg Hydrox/Simethicone 30 ml 06/16/21 03:38 Alum-Mag Hydroxide-Simethicone [id number]/5ml Oral Liqd 30 Ml PO Q4H PRN Indigestion Famotidine 20 mg 06/16/21 10:00 06/17/21 09:45 Famotidine 20 Mg/2 Ml Inj IV 20 mg DAILY MARIANA Administration Heparin Sodium (Porcine) 5,000 unit 06/16/21 10:00 06/17/21 10:10 Heparin 5,000 Unit/1 Ml Vial SUB-Q 5,000 unit Q12HR MARIANA Administration Hydralazine HCl 10 mg 06/16/21 08:29 Hydralazine 20 Mg/1 Ml Inj IV Q4HR PRN SBP > 160 Hydrochlorothiazide 25 mg 06/16/21 10:00 06/17/21 09:43 Hydrochlorothiazide 25 Mg Tab PO 25 mg QDAY MARIANA Administration Metronidazole 500 mg in 100 mls @ 100 mls/hr 06/16/21 08:00 06/17/21 09:46 Flagyl 500 Mg/100 Ml IV 100 mls/hr Q8H MARIANA Administration Protocol Ketorolac Tromethamine 15 mg 06/16/21 16:37 06/17/21 09:42 Ketorolac 30 Mg/1 Ml Inj IV 06/21/21 17:59 15 mg Q6HR PRN Administration Pain, Moderate (4-6) Levofloxacin 500 mg 06/17/21 10:00 06/17/21 09:43 Levofloxacin 500 Mg Tab PO 500 mg Q48HR MARIANA Administration Protocol Losartan Potassium 100 mg 06/16/21 10:00 06/17/21 09:44 Losartan 50 Mg Tab PO 100 mg QDAY MARIANA Administration Magnesium Hydroxide 30 ml 06/16/21 03:38 Magnesium Hydroxide (Mom) Oral Liqd Udc PO Q4H PRN Constipation Metoclopramide HCl 5 mg 06/16/21 03:55 06/17/21 08:40 Metoclopramide 10 Mg/2 Ml Inj IV 5 mg Q6H PRN Administration Nausea And Vomiting Mineral Oil 133 ml 06/17/21 09:00 06/17/21 09:40 Mineral Oil Enema 133 Ml ME 06/17/21 14:00 133 ml ONCE@0900 NR Administration Morphine Sulfate 2 mg 06/16/21 03:38 06/16/21 05:44 Morphine 2 Mg/1 Ml Inj IV 2 mg Q4H PRN Administration Pain , Severe (7-10) Naloxone HCl 0.1 mg 06/16/21 03:38 Naloxone 0.4 Mg/1 Ml Inj IV Q2MIN PRN Res Rate </= 8 or 02 SAT < 92% Ondansetron HCl 4 mg 06/16/21 03:38 06/16/21 23:20 Ondansetron 4 Mg/2 Ml Inj IV 4 mg Q8H PRN Administration Nausea And Vomiting Oxycodone/Acetaminophen 1 tab 06/16/21 03:38 06/17/21 06:02 Oxycodone /Acetaminophen 5-325mg Tab PO 1 tab Q6H PRN Administration Pain, Moderate (4-6) Senna 8.6 mg 06/16/21 03:38 Sennosides 8.6 Mg Tab PO Q12HR PRN Constipation Sodium Chloride 10 ml 06/16/21 10:00 06/17/21 10:10 Sodium Chloride 0.9% 10 Ml Flush Syringe IV 10 ml BID MARIANA Administration HEART Score - HEART Score Troponin: Troponin T < 0.010 ng/mL (0.00-0.029) 06/15/21 23:27
--- NOTE | 2021-06-17 14:01 | XRay Report ---
XR abdomen 1V ap INDICATION / CLINICAL INFORMATION: abd pain. COMPARISON: CT June 16 2021 FINDINGS: TUBES / LINES: None. BOWEL GAS PATTERN: Dilated large bowel loops. FREE AIR / EXTRALUMINAL GAS: None seen. ADDITIONAL FINDINGS: Left nephroureteral stent. IMPRESSION: 1. Left nephroureteral stent appears in appropriate radiographic position. 2. Significantly dilated large bowel loops, similar to prior CT. Signer Name: Ron Arroyo MD Signed: 06/17/2021 1:56 PM Workstation Name: [email or web address]
--- NOTE | 2021-06-17 15:35 | Progress Note ---
Assessment and Plan Assessment and plan: History of present illness: This is 86-year-old male with history of uly-ldmvwif-whxlkverb diabetes and left-sided ureteral stent reported ongoing intractable abdominal pain. He describes the pain like it moves around his stomach from upper to lower area with audible sound sometimes. He reports constipation with the pain. Patient has a past medical history of of hypertension and his on blood pressure medicine. He denies any fever, nausea vomiting, diarrhea, dysuria, and back pain. The patient says that he has had this issue multiple times in the past but usually comes and goes. He says that this time the discomfort feels "different." He also has a . Patient was given magnesium citrate and MiraLAX in the ED without any relief. Admitted to medical floor. Hospital course to date: 06/16: Can resume diet, advance as tolerated. GI will order golytly. Recommends cipro/flagyl. Anticipate d/c in next 24-48hrs. 06/17: continues to have abd pain. XR abd demonstrates persistent large bowel dilation. Ordered mineral oil enema and patient produced some liquid stool and flatus. GI ordered dulcolax. Advised RN to admin senna. Will await for patient to [facility] and discharge. Plan to d/c home with rx for cipro/flagyl course. Assessment and plan (1) Diverticulitis Current Visit: Yes Status: Acute Plan to address problem: CT of the abdomen on admission: Dilatation of colon, inflammatory wall thickening surrounding the entire colon and thickening of the descending colon. Cipro/Flagyl Will likely need c-scope in the future. GI consulted on admission, recs noted. General Surgery consulted on admission, recs noted (2) Hypertension Current Visit: Yes Status: Acute Plan to address problem: Monitor blood pressure Resume home antihypertensivelosartan and hydrochlorothiazide As needed hydralazine (3) Intractable abdominal pain (improving) Current Visit: Yes Status: Acute Plan to address problem: Abdominal pain likely secondary to colitis and constipation Continue laxative as needed Pain management (4) Renal insufficiency Current Visit: Yes Status: Acute Plan to address problem: Monitor kidney function Continue gentle IV hydration (5) Constipation Current Visit: Yes Status: Acute Plan to address problem: Patient report chronic constipation CT of the abdomen show: colon Dilatation Continue as needed laxative and Reglan as needed GI has been consulted s/p Golytly to be ordered by GI, did not tolerate s/p Mineral oil enema and dulcolax, minimal response. XR abd demonstrates dilated large bowel loops. (6) DVT prophylaxis Current Visit: Yes Status: Acute Plan to address problem: Subcutaneous heparin History Interval history: Continues to have abdominal pain and constipation .Did not tolerate go-lytely Hospitalist Physical - Physical exam Narrative exam: Physical Exam: VITAL SIGNS: Reviewed. GENERAL: The patient appears normally developed, Vital signs as documented. mild distress from abd pain. HEAD: No signs of head trauma. EYES: Pupils are equal. Extraocular motions intact. EARS: Hearing grossly intact. MOUTH: Oropharynx is normal. NECK: No adenopathy, no JVD. CHEST: Chest with clear breath sounds bilaterally. No wheezes, rales, or rhonchi. CARDIAC: Regular rate and rhythm. S1 and S2, without murmurs, gallops, or rubs. VASCULAR: No Edema. Peripheral pulses normal and equal in all extremities. ABDOMEN: abdominal pain to palpation. MUSCULOSKELETAL: Good range of motion of all major joints. Extremities without clubbing, cyanosis or edema. NEUROLOGIC EXAM: Alert although orientation could not be verified as patient withdrawn no focal sensory or strength deficits. PSYCHIATRIC: Mood normal. SKIN: detail exam as documented in skin assessment - Constitutional Vitals: Temp Pulse Resp BP Pulse Ox 97.9 F 60 22 142/65 98 06/17/21 11:38 06/17/21 11:38 06/17/21 11:38 06/17/21 11:38 06/17/21 11:38 General appearance: Present: mild distress HEART Score - HEART Score Troponin: Troponin T < 0.010 ng/mL (0.00-0.029) 06/15/21 23:27 Results - Labs CBC & Chem 7: 06/17/21 05:45 06/17/21 05:45 Labs: Laboratory Last Values WBC 6.4 K/mm3 (4.5-11.0) 06/17/21 05:45 RBC 5.12 M/mm3 (3.65-5.03) H 06/17/21 05:45 Hgb 15.2 gm/dl (11.8-15.2) 06/17/21 05:45 Hct 44.1 % (35.5-45.6) 06/17/21 05:45 MCV 86 fl (84-94) 06/17/21 05:45 MCH 30 pg (28-32) 06/17/21 05:45 MCHC 35 % (32-34) H 06/17/21 05:45 RDW 14.2 % (13.2-15.2) 06/17/21 05:45 Plt Count 172 K/mm3 (140-440) 06/17/21 05:45 Lymph % (Auto) 18.7 % (13.4-35.0) 06/17/21 05:45 Towns % (Auto) 8.5 % (0.0-7.3) H 06/17/21 05:45 Eos % (Auto) 3.2 % (0.0-4.3) 06/17/21 05:45 Baso % (Auto) 0.5 % (0.0-1.8) 06/17/21 05:45 Lymph # (Auto) 1.2 K/mm3 (1.2-5.4) 06/17/21 05:45 Towns # (Auto) 0.5 K/mm3 (0.0-0.8) 06/17/21 05:45 Eos # (Auto) 0.2 K/mm3 (0.0-0.4) 06/17/21 05:45 Baso # (Auto) 0.0 K/mm3 (0.0-0.1) 06/17/21 05:45 Seg Neutrophils % 69.1 % (40.0-70.0) 06/17/21 05:45 Seg Neutrophils # 4.4 K/mm3 (1.8-7.7) 06/17/21 05:45 Sodium 136 mmol/L (137-145) L 06/17/21 05:45 Potassium 3.9 mmol/L (3.6-5.0) 06/17/21 05:45 Chloride 99.1 mmol/L (98-107) 06/17/21 05:45 Carbon Dioxide 24 mmol/L (22-30) 06/17/21 05:45 Anion Gap 17 mmol/L 06/17/21 05:45 BUN 16 mg/dL (9-20) 06/17/21 05:45 Creatinine 1.4 mg/dL (0.8-1.3) H 06/17/21 05:45 Estimated GFR 48 ml/min 06/17/21 05:45 BUN/Creatinine Ratio 11 % 06/17/21 05:45 Glucose 172 mg/dL (75-100) H 06/17/21 05:45 POC Glucose 188 mg/dL (70-105) H 06/17/21 11:36 Hemoglobin A1c 8.3 % (4-6) H 06/15/21 23:22 Calcium 9.0 mg/dL (8.4-10.2) 06/17/21 05:45 Total Bilirubin 0.50 mg/dL (0.1-1.2) 06/17/21 05:45 Direct Bilirubin < 0.2 mg/dL (0-0.2) 06/15/21 23:22 Indirect Bilirubin 0.1 mg/dL 06/15/21 23:22 AST 14 units/L (5-40) 06/17/21 05:45 ALT 8 units/L (7-56) 06/17/21 05:45 Alkaline Phosphatase 131 units/L (35-129) H 06/17/21 05:45 Troponin T < 0.010 ng/mL (0.00-0.029) 06/15/21 23:27 Total Protein 7.7 g/dL (6.3-8.2) 06/17/21 05:45 Albumin 3.8 g/dL (3.9-5) L 06/17/21 05:45 Albumin/Globulin Ratio 1.0 % 06/17/21 05:45 Lipase 32 units/L (13-60) 06/15/21 23:22 Urine Color Yellow (Yellow) 06/16/21 02:33 Urine Turbidity Clear (Clear) 06/16/21 02:33 Urine pH 6.0 (5.0-7.0) 06/16/21 02:33 Ur Specific [place] 1.011 (1.003-1.030) 06/16/21 02:33 Urine Protein 30 mg/dl mg/dL (Negative) 06/16/21 02:33 Urine Glucose (UA) 50 mg/dL (Negative) 06/16/21 02:33 Urine Ketones Neg mg/dL (Negative) 06/16/21 02:33 Urine Blood Sm (Negative) 06/16/21 02:33 Urine Nitrite Neg (Negative) 06/16/21 02:33 Urine Bilirubin Neg (Negative) 06/16/21 02:33 Urine Urobilinogen < 2.0 mg/dL (<2.0) 06/16/21 02:33 Ur Leukocyte Esterase Mod (Negative) 06/16/21 02:33 Urine WBC (Auto) 15.0 /HPF (0.0-6.0) H 06/16/21 02:33 Urine RBC (Auto) 1.0 /HPF (0.0-6.0) 06/16/21 02:33 U Epithel Cells (Auto) 1.0 /HPF (0-13.0) 06/16/21 02:33 Urine Yeast (Budding) 1+ /HPF 06/16/21 02:33 Burns/IV: Voiding Method Toilet Active Medications - Current Medications Current Medications: Generic Name Dose Route Start Last Admin Trade Name Freq PRN Reason Stop Dose Admin Acetaminophen 650 mg 06/16/21 03:38 Acetaminophen 325 Mg Tab PO Q4H PRN Pain MILD(1-3)/Fever >100.5/CERDA Al Hydrox/Mg Hydrox/Simethicone 30 ml 06/16/21 03:38 Alum-Mag Hydroxide-Simethicone 182-927-18jp/5ml Oral Liqd 30 Ml PO Q4H PRN Indigestion Bisacodyl 10 mg 06/17/21 11:00 06/17/21 11:18 Bisacodyl 10 Mg Rect Supp IL 06/18/21 10:59 10 mg QDAY MARIANA Administration Famotidine 20 mg 06/16/21 10:00 06/17/21 09:45 Famotidine 20 Mg/2 Ml Inj IV 20 mg DAILY MARIANA Administration Heparin Sodium (Porcine) 5,000 unit 06/16/21 10:00 06/17/21 10:10 Heparin 5,000 Unit/1 Ml Vial SUB-Q 5,000 unit Q12HR MARIANA Administration Hydralazine HCl 10 mg 06/16/21 08:29 Hydralazine 20 Mg/1 Ml Inj IV Q4HR PRN SBP > 160 Hydrochlorothiazide 25 mg 06/16/21 10:00 06/17/21 09:43 Hydrochlorothiazide 25 Mg Tab PO 25 mg QDAY MARIANA Administration Metronidazole 500 mg in 100 mls @ 100 mls/hr 06/16/21 08:00 06/17/21 09:46 Flagyl 500 Mg/100 Ml IV 100 mls/hr Q8H MARIANA Administration Protocol Ketorolac Tromethamine 15 mg 06/16/21 16:37 06/17/21 09:42 Ketorolac 30 Mg/1 Ml Inj IV 06/21/21 17:59 15 mg Q6HR PRN Administration Pain, Moderate (4-6) Levofloxacin 500 mg 06/17/21 10:00 06/17/21 09:43 Levofloxacin 500 Mg Tab PO 500 mg Q48HR MARIANA Administration Protocol Losartan Potassium 100 mg 06/16/21 10:00 06/17/21 09:44 Losartan 50 Mg Tab PO 100 mg QDAY MARIANA Administration Magnesium Hydroxide 30 ml 06/16/21 03:38 Magnesium Hydroxide (Mom) Oral Liqd Udc PO Q4H PRN Constipation Metoclopramide HCl 5 mg 06/16/21 03:55 06/17/21 08:40 Metoclopramide 10 Mg/2 Ml Inj IV 5 mg Q6H PRN Administration Nausea And Vomiting Morphine Sulfate 2 mg 06/16/21 03:38 06/16/21 05:44 Morphine 2 Mg/1 Ml Inj IV 2 mg Q4H PRN Administration Pain , Severe (7-10) Naloxone HCl 0.1 mg 06/16/21 03:38 Naloxone 0.4 Mg/1 Ml Inj IV Q2MIN PRN Res Rate </= 8 or 02 SAT < 92% Ondansetron HCl 4 mg 06/16/21 03:38 06/16/21 23:20 Ondansetron 4 Mg/2 Ml Inj IV 4 mg Q8H PRN Administration Nausea And Vomiting Oxycodone/Acetaminophen 1 tab 06/16/21 03:38 06/17/21 12:20 Oxycodone /Acetaminophen 5-325mg Tab PO 1 tab Q6H PRN Administration Pain, Moderate (4-6) Senna 8.6 mg 06/16/21 03:38 06/17/21 15:15 Sennosides 8.6 Mg Tab PO 8.6 mg Q12HR PRN Administration Constipation Sodium Chloride 10 ml 06/16/21 10:00 06/17/21 10:10 Sodium Chloride 0.9% 10 Ml Flush Syringe IV 10 ml BID MARIANA Administration Nutrition/Malnutrition Assess - Dietary Evaluation Nutrition/Malnutrition Findings: Nutrition Notes Start: 06/16/21 14:52 Freq: Status: Active Protocol: Document 06/16/21 14:52 BAMBI (Rec: 06/16/21 15:15 BAMBI [id number]) Nutrition Notes 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 Current Diet Clear Liquid Diet (since B ). Labs/Tests 06/15: Na 133, Cl 95.5, Cr 1.5 , Glu 225. Pertinent Medications 06/16: Nutritionally unremarkable. Height 5 ft 7 in Weight 70.6 kg [place] Body Weight (kg) 67.27 BMI 24.3 Weight Status Appropriate Subjective/Other Information There is no report of food tolerance, nor %PO intake of meals at the time. Percent of energy/protein needs met: Prescribed CL Diet provides partially for energy/protein needs (590 Kcal/16 g) during LOS, while advancing to more complete diet as per MD. Burn Absent Trauma Absent GI Symptoms Constipation Food Allergy No Skin Integrity/Comment Clear, warm, dry. #1 Nutrition Diagnosis No nutrition diagnosis at this time Comments: There are no signs od concern for skin integrity risk at the time. Is patient on ventilator? No Is Patient Ambulatory and/or Out of Bed Yes REE-([facility]. [facility]-ambulatory/OOB) [ 1761.019 [id number]] Kcal/Kg value to use for calculation 25 Approximate Energy Requirements Using 1765 kcal/Kg Calculation Used for Recommendations Kcal/kg Additional Notes Protein: 0.8-1.0 g/Kg/day; 54- 67 g/day; 216-268 Kcal/day ( from IBW). Fluids: 1.0 ml/Kcal/day, or as per MD. Nutrition Intervention Change Diet Order: Continue Clear Liquids Diet, or as per MD. Goal #1 Maintain body weight within +/ -3% of current BWt during LOS. Goal #2 Reach and maintain acceptable chemistry lab values during LOS. Follow-Up By: 06/19/21 Additional Comments Continue monitoring tolerance of foods, %PO intake of meals, Hydration, and BM.
--- NOTE | 2021-06-17 15:45 | Progress Note ---
Assessment and Plan 86-year-old male with 1. L sided colitis 2. diverticulosis 3. constipation Pt stable. Afebrile KUB 06/17/21- dilatation of colon similar to CT scan A/P Plan: 1. CLD 2. suppository and enema daily 3. IV abx 4. prn pain control 5. gentle IVF 6. May consider gastrograffin enema if not showing signs of clinical improvement in next 24 to 48 hours 7. Agree with GI recommendations - eventual cscope as outpatient Discussed plan with patient. He is reluctant to undergo any type of procedure or surgery requiring anesthesia. Thank you, please call with any questions or concerns. Evaluation and treatment of this patient was during the time of the national and state emergency arising from COVID19 coronavirus pandemic. Treatment and procedures performed meet the current and available best practice and guidelines for patient during the COVID pandemic. Subjective Date of service: 06/17/21 Narrative: Pt seen and examined. Afebrile. Had n/v and increased abd pain with golytely. He is tolerating clear liquids. Pain is minimal. States he had some flatus and small BM after getting enema and dulcolax suppository. Objective Vital Signs - 12hr 06/17/21 06/17/21 06/17/21 05:05 09:44 11:38 Temperature 98.5 F 97.9 F Pulse Rate 61 61 60 Respiratory 20 22 Rate Blood Pressure 158/72 158/72 142/65 O2 Sat by Pulse 94 98 Oximetry - General physical appearance Narrative Exam: Gen.: Awake, alert, oriented x3. No apparent distress ENT: Trachea midline. No lymphadenopathy. No scleral icterus or conjunctival pallor CV: S1, S2 present Respiratory: No audible wheezes Abdomen: Soft, distended, nontender. No rebound, rigidity, guarding Extremities: No clubbing, cyanosis, edema - Labs 06/17/21 05:45 06/17/21 05:45 Diabetes panel 06/17/21 Range/Units 05:45 Sodium 136 L (137-145) mmol/L Potassium 3.9 (3.6-5.0) mmol/L Chloride 99.1 (98-107) mmol/L Carbon Dioxide 24 (22-30) mmol/L BUN 16 (9-20) mg/dL Creatinine 1.4 H (0.8-1.3) mg/dL Glucose 172 H (75-100) mg/dL Calcium 9.0 (8.4-10.2) mg/dL AST 14 (5-40) units/L ALT 8 (7-56) units/L Alkaline Phosphatase 131 H (35-129) units/L Total Protein 7.7 (6.3-8.2) g/dL Albumin 3.8 L (3.9-5) g/dL Calcium panel 06/17/21 Range/Units 05:45 Calcium 9.0 (8.4-10.2) mg/dL Albumin 3.8 L (3.9-5) g/dL Pituitary panel 06/17/21 Range/Units 05:45 Sodium 136 L (137-145) mmol/L Potassium 3.9 (3.6-5.0) mmol/L Chloride 99.1 (98-107) mmol/L Carbon Dioxide 24 (22-30) mmol/L BUN 16 (9-20) mg/dL Creatinine 1.4 H (0.8-1.3) mg/dL Glucose 172 H (75-100) mg/dL Calcium 9.0 (8.4-10.2) mg/dL Adrenal panel 06/17/21 Range/Units 05:45 Sodium 136 L (137-145) mmol/L Potassium 3.9 (3.6-5.0) mmol/L Chloride 99.1 (98-107) mmol/L Carbon Dioxide 24 (22-30) mmol/L BUN 16 (9-20) mg/dL Creatinine 1.4 H (0.8-1.3) mg/dL Glucose 172 H (75-100) mg/dL Calcium 9.0 (8.4-10.2) mg/dL Total Bilirubin 0.50 (0.1-1.2) mg/dL AST 14 (5-40) units/L ALT 8 (7-56) units/L Alkaline Phosphatase 131 H (35-129) units/L Total Protein 7.7 (6.3-8.2) g/dL Albumin 3.8 L (3.9-5) g/dL
--- NOTE | 2021-06-17 17:51 | Electrocardiograph Report ---
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
[2021-06-18] MEDS: metroNIDAZOLE/NS 500 MG/100 ML 500 MG/100 ML BAG IV SCH ×2 (00:24→10:01)
[2021-06-18] MEDS: oxyCODONE /ACETAMINOPHEN 5-325MG TAB PO PRN (05:30)
--- NOTE | 2021-06-18 08:26 | Discharge Summary ---
Providers - Providers Date of Admission: 06/16/21 08:39 Attending physician: LEO SMITH MD 06/16/21 02:55 Consult to Physician [CONS] Routine Comment: Consulting Provider: EVIE GARCIA Physician Instructions: Reason For Exam: Abd pain, Colitis, dilated colon 06/16/21 06:27 Consult to Physician [CONS] Stat Comment: Consulting Provider: ADWOA ARGUELLES Physician Instructions: Reason For Exam: Colitis Primary care physician: [facility] TRIMMER Hospitalization Reason for admission: abdominal pain Condition: Fair Hospital course: History of present illness: This is 86-year-old male with history of [id number] diabetes and left-sided ureteral stent reported ongoing intractable abdominal pain. He describes the pain like it moves around his stomach from upper to lower area with audible sound sometimes. He reports constipation with the pain. Patient has a past medical history of of hypertension and his on blood pressure medicine. He denies any fever, nausea vomiting, diarrhea, dysuria, and back pain. The patient says that he has had this issue multiple times in the past but usually comes and goes. He says that this time the discomfort feels "different." He also has a . Patient was given magnesium citrate and MiraLAX in the ED without any relief. Admitted to medical floor. Hospital course to date: 06/16: Can resume diet, advance as tolerated. GI will order golytly. Recommends cipro/flagyl. Anticipate d/c in next 24-48hrs. 06/17: continues to have abd pain. XR abd demonstrates persistent large bowel dilation. Ordered mineral oil enema and patient produced some liquid stool and flatus. GI ordered dulcolax. Advised RN to admin senna. Will await for patient to [facility] bm and discharge. Plan to d/c home with rx for cipro/flagyl course. 06/18; Per Rn, patient had BM overnight. he will be discharged today. Rx for levaquin, flagyl, senna, and HCTZ sent to patient pharmacy. Assessment and plan (1) Diverticulitis Current Visit: Yes Status: Acute Plan to address problem: CT of the abdomen on admission: Dilatation of colon, inflammatory wall thickening surrounding the entire colon and thickening of the descending colon. Cipro/Flagyl Will likely need c-scope in the future. GI consulted on admission, recs noted. General Surgery consulted on admission, recs noted (2) Hypertension Current Visit: Yes Status: Acute Plan to address problem: Monitor blood pressure Resume home antihypertensivelosartan and hydrochlorothiazide As needed hydralazine (3) Intractable abdominal pain (improving) Current Visit: Yes Status: Acute Plan to address problem: Abdominal pain likely secondary to colitis and constipation Continue laxative as needed Pain management (4) Renal insufficiency Current Visit: Yes Status: Acute Plan to address problem: Monitor kidney function Continue gentle IV hydration (5) Constipation Current Visit: Yes Status: Acute Plan to address problem: Patient report chronic constipation CT of the abdomen show: colon Dilatation Continue as needed laxative and Reglan as needed GI has been consulted s/p Golytly to be ordered by GI, did not tolerate s/p Mineral oil enema and dulcolax, minimal response. XR abd demonstrates dilated large bowel loops. (6) DVT prophylaxis Current Visit: Yes Status: Acute Plan to address problem: Subcutaneous heparin Disposition: HOME / SELF CARE / HOMELESS Final Discharge Diagnosis (Prints w/discharge instructions): Constipation, colitis Time spent for discharge: 35 - Discharge Diagnoses (1) Colitis Status: Acute (2) Constipation Status: Acute Core Measure Documentation - Palliative Care Palliative Care/ Comfort Measures: Not Applicable - Core Measures Any of the following diagnoses?: none Exam - Physical Exam Narrative exam: Physical Exam: VITAL SIGNS: Reviewed. GENERAL: The patient appears normally developed, Vital signs as documented. mild distress from abd pain. HEAD: No signs of head trauma. EYES: Pupils are equal. Extraocular motions intact. EARS: Hearing grossly intact. MOUTH: Oropharynx is normal. NECK: No adenopathy, no JVD. CHEST: Chest with clear breath sounds bilaterally. No wheezes, rales, or rhonchi. CARDIAC: Regular rate and rhythm. S1 and S2, without murmurs, gallops, or rubs. VASCULAR: No Edema. Peripheral pulses normal and equal in all extremities. ABDOMEN: abdominal pain to palpation (improved) MUSCULOSKELETAL: Good range of motion of all major joints. Extremities without clubbing, cyanosis or edema. NEUROLOGIC EXAM: Alert although orientation could not be verified as patient withdrawn no focal sensory or strength deficits. PSYCHIATRIC: Mood normal. SKIN: detail exam as documented in skin assessment - Constitutional Vitals: Temp Pulse Resp BP Pulse Ox 98.5 F 76 20 144/71 93 06/18/21 05:08 06/18/21 05:08 06/18/21 05:08 06/18/21 05:08 06/18/21 05:08 Plan Follow up with: PRIMARY CARE, [Primary Care Provider] - 7 Days Prescriptions: Docusate Sodium [Colace] 100 mg PO BID PRN #20 capsule PRN Reason: Constipation metroNIDAZOLE [Flagyl] 500 mg PO Q8HR 3 Days #9 tablet hydroCHLOROthiazide [HCTZ] 25 mg PO QDAY 30 Days #30 tablet levoFLOXacin [Levaquin TAB] 500 mg PO Q24HR 3 Days #3 tablet Sennosides 8.6 mg PO Q12HR PRN 30 Days #60 tablet PRN Reason: Constipation
[2021-06-18] MEDS: FAMOTIDINE 20 MG/2 ML INJ IV SCH (10:00)
[2021-06-18] MEDS: hydroCHLOROthiazide 25 MG TAB PO SCH (10:00)
[2021-06-18] MEDS: HEPARIN 5,000 UNIT/1 ML VIAL SUB-Q SCH (10:00)
[2021-06-18] MEDS: LOSARTAN 50 MG TAB PO SCH (10:00)
[2021-06-18 13:13] VITALS: BP 125/58
== END 2021-06-18 13:30 | disposition home or self-care (01) | DRG 392 ==
LOC: ED 20:19 → 3A 06-16 03:39 → OBSVTOIN 06-16 08:39
PROVIDERS: ADMIT Internal Medicine Geriatric Medicine; ATTEND Internal Medicine
DX: K52.9 Noninfective gastroenteritis and colitis, unspecified (principal); K57.32 Diverticulitis of large intestine without perforation or abscess without bleeding; N28.9 Disorder of kidney and ureter, unspecified; K59.00 Constipation, unspecified; K31.9 Disease of stomach and duodenum, unspecified; I10 Essential (primary) hypertension; E11.9 Type 2 diabetes mellitus without complications; M19.90 Unspecified osteoarthritis, unspecified site; Z20.822 Contact with and (suspected) exposure to COVID-19
CPT/HCPCS: 36415; 74018; 74176; 80048; 80053; 80076; 81001; 82962; 83036; 83690; 84484; 85025; 93005; G0378; J0360; J1644; J1885; J1956; J2270; J2405; J2543; J2765; J7040

== ENCOUNTER 2021-06-19 00:19 | Inpatient (IN) | payer MEDICARE ==
--- NOTE | 2021-06-19 01:40 | Emergency Department Report ---
ED Abdominal Pain HPI - General Chief Complaint: Abdominal Pain Stated Complaint: ABD PAIN PUI?: No Time Seen by Provider: 06/19/21 01:32 Source: patient, EMS Mode of arrival: Stretcher Limitations: No Limitations - History of Present Illness Initial Comments: Patient is a 86-year-old male who presents emergency room with complaints of abdominal pain. Patient states abdominal pain going on a week. Patient states his abdominal pain had resolved yesterday but came back this evening. Patient states he was recently admitted to this hospital for abdominal pain and a colon impaction. Patient states he was admitted on Tuesday and discharged on afternoon. Patient states that he was having bowel movements prior to discharge but has not had a bowel movement since discharge. Patient states he is now having generalized abdominal pain. Patient states he has abdominal fullness. Patient states the pain is a 10 out of 10. Patient denies fever and chills. Patient states he is also nauseous. Patient denies vomiting. Patient denies chest pain. Patient denies shortness of breath. Patient denies fever or chills. Patient denies recent travel. Patient denies recent international travel. Patient denies exposure to the novel coronavirus. Patient denies sick contacts. Patient denies fever and chills. Patient denies cough. Patient denies diarrhea. Patient denies coming in contact with anybody with symptoms of the novel coronavirus. Patient brought in by EMS. EMS states they found the patient to be hypotensive. Patient was started on IV fluids and his blood pressure improved. MD Complaint: abdominal pain -: Sudden Location: diffuse Radiation: none Migration to: no migration Severity: severe Severity scale (0 -10): 10 Quality: fullness Consistency: constant Improves With: rest Worsens With: movement Associated Symptoms: nausea. denies: vomiting, diarrhea, fever, chills, constipation, dysuria, hematemesis, hematochezia, melena, hematuria, syncope - Related Data Home Medications Medication Instructions Recorded Confirmed Last Taken Glucophage 500 mg PO BID 06/17/21 06/17/21 06/13/21 Losartan [Cozaar] 100 mg PO QDAY 06/17/21 06/17/21 06/13/21 Previous Rx's Medication Instructions Recorded Last Taken Type Docusate Sodium [Colace] 100 mg PO BID PRN #20 capsule 06/16/21 Unknown Rx Losartan [Cozaar] 100 mg PO QDAY tablet 06/18/21 Unknown Rx Sennosides 8.6 mg PO Q12HR PRN 30 Days #60 06/18/21 Unknown Rx tablet hydroCHLOROthiazide [HCTZ] 25 mg PO QDAY 30 Days #30 tablet 06/18/21 Unknown Rx levoFLOXacin [Levaquin TAB] 500 mg PO Q24HR 3 Days #3 tablet 06/18/21 Unknown Rx metFORMIN [Glucophage] 500 mg PO BID 30 Days #60 tablet 06/18/21 Unknown Rx metroNIDAZOLE [Flagyl] 500 mg PO Q8HR 3 Days #9 tablet 06/18/21 Unknown Rx Allergies Allergy/AdvReac Type Severity Reaction Status Date / Time Penicillins Allergy Anaphylaxis Verified 06/16/21 03:39 red dye AdvReac Anaphylaxis Verified 06/15/21 21:43 ED Review of Systems ROS: Stated complaint: ABD PAIN Other details as noted in HPI Constitutional: denies: chills, fever Eyes: denies: eye pain, eye discharge, vision change ENT: denies: ear pain, throat pain Respiratory: denies: cough, shortness of breath, wheezing Cardiovascular: denies: chest pain, palpitations Endocrine: no symptoms reported Gastrointestinal: abdominal pain, nausea, constipation. denies: vomiting, diarrhea Genitourinary: denies: urgency, dysuria Musculoskeletal: denies: back pain, joint swelling, arthralgia Skin: denies: rash, lesions Neurological: denies: headache, weakness, paresthesias Psychiatric: denies: anxiety, depression Hematological/Lymphatic: denies: easy bleeding, easy bruising ED Past Medical Hx - Past Medical History Previous Medical History?: Yes Hx Hypertension: Yes Hx Diabetes: Yes Hx Arthritis: Yes Hx Kidney Stones: Yes Hx HIV: No - Surgical History Past Surgical History?: Yes Additional Surgical History: Kidney stents - Family History Family history: no significant - Social History Smoking Status: Never Smoker Substance Use Type: None - Medications Home Medications: Home Medications Medication Instructions Recorded Confirmed Last Taken Type Docusate Sodium [Colace] 100 mg PO BID PRN #20 capsule 06/16/21 Unknown Rx Glucophage 500 mg PO BID 06/17/21 06/17/21 06/13/21 History Losartan [Cozaar] 100 mg PO QDAY 06/17/21 06/17/21 06/13/21 History Losartan [Cozaar] 100 mg PO QDAY tablet 06/18/21 Unknown Rx Sennosides 8.6 mg PO Q12HR PRN 30 Days #60 06/18/21 Unknown Rx tablet hydroCHLOROthiazide [HCTZ] 25 mg PO QDAY 30 Days #30 tablet 06/18/21 Unknown Rx levoFLOXacin [Levaquin TAB] 500 mg PO Q24HR 3 Days #3 tablet 06/18/21 Unknown Rx metFORMIN [Glucophage] 500 mg PO BID 30 Days #60 tablet 06/18/21 Unknown Rx metroNIDAZOLE [Flagyl] 500 mg PO Q8HR 3 Days #9 tablet 06/18/21 Unknown Rx ED Physical Exam - General Limitations: No Limitations General appearance: alert, in no apparent distress - Head Head exam: Present: atraumatic, normocephalic - Eye Eye exam: Present: normal appearance - ENT ENT exam: Present: mucous membranes moist - Neck Neck exam: Present: normal inspection - Respiratory Respiratory exam: Present: normal lung sounds bilaterally. Absent: respiratory distress - Cardiovascular Cardiovascular Exam: Present: regular rate, normal rhythm. Absent: systolic murmur, diastolic murmur, rubs, gallop - GI/Abdominal GI/Abdominal exam: Present: soft, tenderness, normal bowel sounds - Rectal Rectal exam: Present: deferred - Extremities Exam Extremities exam: Present: normal inspection - Back Exam Back exam: Present: normal inspection - Neurological Exam Neurological exam: Present: alert, oriented X3 - Psychiatric Psychiatric exam: Present: normal affect, normal mood - Skin Skin exam: Present: warm, dry, intact, normal color. Absent: rash ED Course Vital Signs 06/19/21 06/19/21 06/19/21 00:49 01:38 01:47 Temperature 98.8 F Pulse Rate 88 93 H Respiratory 18 14 Rate Blood Pressure Blood Pressure 124/64 150/73 [Left] O2 Sat by Pulse 96 96 100 Oximetry 06/19/21 06/19/21 06/19/21 02:00 03:00 04:00 Temperature Pulse Rate 112 H 94 H 92 H Respiratory 20 22 23 Rate Blood Pressure 150/73 130/72 119/61 Blood Pressure [Left] O2 Sat by Pulse 94 95 Oximetry 06/19/21 06/19/21 05:00 05:30 Temperature Pulse Rate 89 88 Respiratory 16 16 Rate Blood Pressure 119/61 119/61 Blood Pressure [Left] O2 Sat by Pulse 95 94 Oximetry - Reevaluation(s) Reevaluation #1: Patient's blood pressure has improved. 06/19/21 02:03 \ Reevaluation #2: Patient blood pressures improving. Patient is resting comfortably in bed. I discussed all results with patient. I discussed plan of care with patient. Patient agrees with plan of care and admission. Patient to be admitted to the hospitalist service. 06/19/21 03:24 - Consultations Consultation #1: Hospitalist consulted for admission. Hospitalist to admit patient. 06/19/21 03:50 ED Medical Decision Making - Lab Data Result diagrams: 06/19/21 01:46 06/19/21 01:46 - Radiology Data Radiology results: report reviewed CT ABDOMEN AND PELVIS WITHOUT CONTRAST HISTORY: Abdominal Pain. COMPARISON: 06/16/2021 TECHNIQUE: CT images of the abdomen and pelvis were obtained without administration of intravenous contrast. All CT scans at this location are performed using CT dose reduction for ALARA by means of automated exposure control. FINDINGS: Lungs/bones: Lung bases are clear Abdomen/pelvis: Within limits of a noncontrast exam the liver, spleen, adrenal glands, pancreas appear normal. There is a left double-J ureteral stent. Prominent large calcification throughout the left kidney. Large bladder calcifications are again seen. There is significant dilatation of the bowel loops throughout. Multiple sigmoid and left colon diverticulosis. Marked wall thickening within the colon loops most significant at the level of the splenic flexure. There is free fluid within the pelvis. IMPRESSION: 1. Marked dilatation of the colon to the level splenic flexure. There is significant dilatation of the proximal: With fecal material and fluid. There is marked thickening of the level splenic flexure. Findings could represent diffuse colitis however underlying lesion or malignancy cannot be excluded at the level of splenic flexure. A follow-up colonoscopy after treatment recommended. Diverticulosis also noted. 2. Left double-J ureteral stent with large calcifications in the bladder and left kidney. - Medical Decision Making Patient is an 86-year-old male who presents emergency room with generalized abdominal pain. Patient has a history of impaction and obstruction. Patient was recent in this hospital recently discharged. Patient had labs done which shows acute renal failure, hyperglycemia. Patient had a CT scan which showed constipation with colonic dilation. Patient brought in by EMS and EMS found patient be hypotensive and given patient fluid. Patient responded well to fluids and blood pressure improved. Patient given a normal saline bolus. Patient's blood pressure stabilized. Patient admitted to the hospital service for further evaluation treatment. Critical care time documented due to the multiple reassessments, prolonged time at the bedside, interpretation of diagnostics and labs. - Differential Diagnosis Obstruction, constipation, abdominal pain, electrolyte imbalance, dehydrati Critical Care Time: Yes Critical care time in (mins) excluding proc time.: 35 Critical care attestation.: If time is entered above; I have spent that time in minutes in the direct care of this critically ill patient, excluding procedure time. Critical Care Time: 35 minutes ED Disposition Clinical Impression: Renal insufficiency, Intractable abdominal pain, Colonic obstruction Acute renal failure Qualifiers: Acute renal failure type: unspecified Qualified Code(s): N17.9 - Acute kidney failure, unspecified Abdominal pain Qualifiers: Abdominal location: generalized Qualified Code(s): R10.84 - Generalized abdominal pain Hypotension Qualifiers: Hypotension type: unspecified hypotension type Qualified Code(s): I95.9 - Hypotension, unspecified Constipation Qualifiers: Constipation type: unspecified constipation type Qualified Code(s): K59.00 - Constipation, unspecified Disposition: 09 ADMITTED INPATIENT Is pt being admited?: Yes Does the pt Need Aspirin: No Condition: Critical Time of Disposition: 03:45
[2021-06-19 02:04] LABS: Hematocrit 41.1 % (35.5-45.6); Hemoglobin 13.9 gm/dl (11.8-15.2); Mean Corpuscular HGB Conc 34 % (32-34); Mean Corpuscular Volume 88 fl (84-94); Platelet Count 169 K/mm3 (140-440); Red Blood Count 4.69 M/mm3 (3.65-5.03)
[2021-06-19 02:26] LABS: Albumin 3.5 g/dL (3.9-5); Bilirubin,Direct 0.3 mg/dL (0-0.2); Calcium 8.6 mg/dL (8.4-10.2)
[2021-06-19 03:13] LABS: Bilirubin,Urine NEG (Negative); Blood,Urine MOD (Negative); Color,Urine Amber (Yellow); Mucus,Urine FEW /HPF; Urobilinogen,Urine < 2.0 mg/dL (<2.0)
--- NOTE | 2021-06-19 03:30 | Cat Scan Report ---
CT ABDOMEN AND PELVIS WITHOUT CONTRAST HISTORY: Abdominal Pain. COMPARISON: 06/16/2021 TECHNIQUE: CT images of the abdomen and pelvis were obtained without administration of intravenous co ntrast. All CT scans at this location are performed using CT dose reduction for ALARA by means of au tomated exposure control. FINDINGS: Lungs/bones: Lung bases are clear Abdomen/pelvis: Within limits of a noncontrast exam the liver, spleen, adrenal glands, pancreas appe ar normal. There is a left double-J ureteral stent. Prominent large calcification throughout the left kidney. Large bladder calcifications are again seen. There is significant dilatation of the bowel loops throughout. Multiple sigmoid and left colon divert iculosis. Marked wall thickening within the colon loops most significant at the level of the splenic flexure. There is free fluid within the pelvis. IMPRESSION: 1. Marked dilatation of the colon to the level splenic flexure. There is significant dilatation of th e proximal: With fecal material and fluid. There is marked thickening of the level splenic flexure. F indings could represent diffuse colitis however underlying lesion or malignancy cannot be excluded at the level of splenic flexure. A follow-up colonoscopy after treatment recommended. Diverticulosis al so noted. 2. Left double-J ureteral stent with large calcifications in the bladder and left kidney. Signer Name: Parish Gilbert MD Signed: 06/19/2021 3:25 AM Workstation Name: [id number]
[2021-06-19 04:13] LABS: Total Cells Counted 100
[2021-06-19 04:14] LABS: Platelet Estimate Consistent w Auto; RBC Morphology Normal
[2021-06-19] MEDS ORDERED: HYDROmorphone 1 MG/1 ML INJ IV ONE (06:46)
[2021-06-19] MEDS ORDERED: ONDANSETRON 4 MG/2 ML INJ IV ONE (06:47)
--- NOTE | 2021-06-19 08:33 | History and Physical Report ---
History of Present Illness Date of examination: 06/19/21 Date of admission: 06/19/21 03:45 Chief complaint: Abdominal pain History of present illness: 86-year-old male with past medical history of hypertension, avy-oesqyum-ujsitaxpn diabetes and left-sided ureteral stent presents to the emergency department with complaints of abdominal pain. The patient was recen tly admitted here on 06/16 and discharged on 06/18 for same complaints. The patient was admitted with diagnosis of diverticulitis. CT scan completed on that admission revealed Dilatation of colon, inflammatory wall thickening surrounding the entire colon and thickening of the descending colon. The patient was treated with Cipro/Flagyl. GI and surgery saw the patient in consultation. KUB 06/17/21- dilatation of colon similar to CT scan A/P. Plans were for the patient to have colonoscopy as an outpatient. Patient had a bowel movement on 06/18 and was felt could be discharged home per Dr. De Leon, GI and surgery. Patient now returns with similar complaints of abdominal pain. Patient reports not having a bowel movement since his discharge and reports the pain is 10/10. No fever chills. CT scan completed earlier this morning reveals marked dilatation of the colon to the level of the splenic flexure. There is significant dilatation of the proximal with fecal material and fluid. There is marked thickening of the level at the splenic flexure. Findings represent diffuse colitis. Past History Past Medical History: hypertension, other (Recent diverticulitis, ) Past Surgical History: Other (Left-sided ureteral stent) Social history: no significant social history Family history: no significant family history Medications and Allergies Allergies Allergy/AdvReac Type Severity Reaction Status Date / Time Penicillins Allergy Anaphylaxis Verified 06/16/21 03:39 red dye AdvReac Anaphylaxis Verified 06/15/21 21:43 Home Medications Medication Instructions Recorded Confirmed Last Taken Type Docusate Sodium [Colace] 100 mg PO BID PRN #20 capsule 06/16/21 Unknown Rx Glucophage 500 mg PO BID 06/17/21 06/17/21 06/13/21 History Losartan [Cozaar] 100 mg PO QDAY 06/17/21 06/17/21 06/13/21 History Losartan [Cozaar] 100 mg PO QDAY tablet 06/18/21 Unknown Rx Sennosides 8.6 mg PO Q12HR PRN 30 Days #60 06/18/21 Unknown Rx tablet hydroCHLOROthiazide [HCTZ] 25 mg PO QDAY 30 Days #30 tablet 06/18/21 Unknown Rx levoFLOXacin [Levaquin TAB] 500 mg PO Q24HR 3 Days #3 tablet 06/18/21 Unknown Rx metFORMIN [Glucophage] 500 mg PO BID 30 Days #60 tablet 06/18/21 Unknown Rx metroNIDAZOLE [Flagyl] 500 mg PO Q8HR 3 Days #9 tablet 06/18/21 Unknown Rx Active Meds: Active Medications Ceftriaxone Sodium (Rocephin/Ns 1 Gm/50 Ml) 1 gm in 50 mls @ 100 mls/hr IV Q24H MARIANA; Protocol Review of Systems All systems: negative Exam - Constitutional Vitals: Temp Pulse Resp BP Pulse Ox 98.8 F 88 23 122/63 95 06/19/21 00:49 06/19/21 06:46 06/19/21 06:46 06/19/21 06:46 06/19/21 06:46 General appearance: Present: no acute distress, well-nourished - EENT Eyes: Present: PERRL ENT: hearing intact, clear oral mucosa - Neck Neck: Present: supple, normal ROM - Respiratory Respiratory effort: normal Respiratory: bilateral: CTA - Cardiovascular Heart Sounds: Present: S1 & S2. Absent: rub, click - Extremities Extremities: pulses symmetrical, No edema Peripheral Pulses: within normal limits - Abdominal General gastrointestinal: Present: soft, non-tender, non-distended, normal bowel sounds Male genitourinary: Present: normal - Integumentary Integumentary: Present: clear, warm, dry - Musculoskeletal Musculoskeletal: gait normal, strength equal bilaterally - Psychiatric Psychiatric: appropriate mood/affect, intact judgment & insight - Neurologic Neurologic: CNII-XII intact, moves all extremities Results - Labs CBC & Chem 7: 06/19/21 01:46 06/19/21 01:46 Labs: Laboratory Last Values WBC 6.5 K/mm3 (4.5-11.0) 06/19/21 01:46 RBC 4.69 M/mm3 (3.65-5.03) 06/19/21 01:46 Hgb 13.9 gm/dl (11.8-15.2) 06/19/21 01:46 Hct 41.1 % (35.5-45.6) 06/19/21 01:46 MCV 88 fl (84-94) 06/19/21 01:46 MCH 30 pg (28-32) 06/19/21 01:46 MCHC 34 % (32-34) 06/19/21 01:46 RDW 14.0 % (13.2-15.2) 06/19/21 01:46 Plt Count 169 K/mm3 (140-440) 06/19/21 01:46 Add Manual Diff Complete 06/19/21 01:46 Total Counted 100 06/19/21 01:46 Seg Neutrophils % Supervisor Production Managing 06/19/21 01:46 Seg Neuts % (Manual) 86.0 % (40.0-70.0) H 06/19/21 01:46 Lymphocytes % (Manual) 12.0 % (13.4-35.0) L 06/19/21 01:46 Monocytes % (Manual) 2.0 % (0.0-7.3) 06/19/21 01:46 Nucleated RBC % Not Reportable 06/19/21 01:46 Seg Neutrophils # Man 5.6 K/mm3 (1.8-7.7) 06/19/21 01:46 Band Neutrophils # 0.0 K/mm3 06/19/21 01:46 Lymphocytes # (Manual) 0.8 K/mm3 (1.2-5.4) L 06/19/21 01:46 Abs React Lymphs (Man) 0.0 K/mm3 06/19/21 01:46 Monocytes # (Manual) 0.1 K/mm3 (0.0-0.8) 06/19/21 01:46 Eosinophils # (Manual) 0.0 K/mm3 (0.0-0.4) 06/19/21 01:46 Basophils # (Manual) 0.0 K/mm3 (0.0-0.1) 06/19/21 01:46 Metamyelocytes # 0.0 K/mm3 06/19/21 01:46 Myelocytes # 0.0 K/mm3 06/19/21 01:46 Promyelocytes # 0.0 K/mm3 06/19/21 01:46 Blast Cells # 0.0 K/mm3 06/19/21 01:46 WBC Morphology Not Reportable 06/19/21 01:46 Hypersegmented Neuts Not Reportable 06/19/21 01:46 Hyposegmented Neuts Not Reportable 06/19/21 01:46 Hypogranular Neuts Not Reportable 06/19/21 01:46 Smudge Cells Not Reportable 06/19/21 01:46 Toxic Granulation Not Reportable 06/19/21 01:46 Toxic Vacuolation Not Reportable 06/19/21 01:46 Dohle Bodies Not Reportable 06/19/21 01:46 Pelger-Huet Anomaly Not Reportable 06/19/21 01:46 Geovanni Rods Not Reportable 06/19/21 01:46 Platelet Estimate Consistent w auto 06/19/21 01:46 Clumped Platelets Not Reportable 06/19/21 01:46 Plt Clumps, EDTA Not Reportable 06/19/21 01:46 Large Platelets Not Reportable 06/19/21 01:46 Giant Platelets Not Reportable 06/19/21 01:46 Platelet Satelliting Not Reportable 06/19/21 01:46 Plt Morphology Comment Not Reportable 06/19/21 01:46 RBC Morphology Normal 06/19/21 01:46 Dimorphic RBCs Not Reportable 06/19/21 01:46 Polychromasia Not Reportable 06/19/21 01:46 Hypochromasia Not Reportable 06/19/21 01:46 Poikilocytosis Not Reportable 06/19/21 01:46 Anisocytosis Not Reportable 06/19/21 01:46 Microcytosis Not Reportable 06/19/21 01:46 Macrocytosis Not Reportable 06/19/21 01:46 Spherocytes Not Reportable 06/19/21 01:46 Pappenheimer Bodies Not Reportable 06/19/21 01:46 Sickle Cells Not Reportable 06/19/21 01:46 Target Cells Not Reportable 06/19/21 01:46 Tear Drop Cells Not Reportable 06/19/21 01:46 Ovalocytes Not Reportable 06/19/21 01:46 Helmet Cells Not Reportable 06/19/21 01:46 Alvares-[place] Bodies Not Reportable 06/19/21 01:46 [place] Light Rings Not Reportable 06/19/21 01:46 [place] Cells Not Reportable 06/19/21 01:46 Bite Cells Not Reportable 06/19/21 01:46 Crenated Cell Not Reportable 06/19/21 01:46 Elliptocytes Not Reportable 06/19/21 01:46 Acanthocytes (Spur) Not Reportable 06/19/21 01:46 Rouleaux Not Reportable 06/19/21 01:46 Hemoglobin C Crystals Not Reportable 06/19/21 01:46 Schistocytes Not Reportable 06/19/21 01:46 Malaria parasites Not Reportable 06/19/21 01:46 Jamar Bodies Not Reportable 06/19/21 01:46 Hem Pathologist Commnt No 06/19/21 01:46 Sodium 137 mmol/L (137-145) 06/19/21 01:46 Potassium 3.4 mmol/L (3.6-5.0) L 06/19/21 01:46 Chloride 97.6 mmol/L (98-107) L 06/19/21 01:46 Carbon Dioxide 23 mmol/L (22-30) 06/19/21 01:46 Anion Gap 20 mmol/L 06/19/21 01:46 BUN 28 mg/dL (9-20) H 06/19/21 01:46 Creatinine 2.1 mg/dL (0.8-1.3) H 06/19/21 01:46 Estimated GFR 30 ml/min 06/19/21 01:46 BUN/Creatinine Ratio 13 % 06/19/21 01:46 Glucose 171 mg/dL (75-100) H 06/19/21 01:46 Calcium 8.6 mg/dL (8.4-10.2) 06/19/21 01:46 Total Bilirubin 0.90 mg/dL (0.1-1.2) 06/19/21 01:46 Direct Bilirubin 0.3 mg/dL (0-0.2) H 06/19/21 01:46 Indirect Bilirubin 0.6 mg/dL 06/19/21 01:46 AST 32 units/L (5-40) 06/19/21 01:46 ALT 15 units/L (7-56) 06/19/21 01:46 Alkaline Phosphatase 115 units/L (35-129) 06/19/21 01:46 Total Protein 6.1 g/dL (6.3-8.2) L D 06/19/21 01:46 Albumin 3.5 g/dL (3.9-5) L 06/19/21 01:46 Albumin/Globulin Ratio 1.3 % 06/19/21 01:46 Lipase 16 units/L (13-60) 06/19/21 01:46 Urine Color Alyse (Yellow) 06/19/21 Unknown Urine Turbidity Clear (Clear) 06/19/21 Unknown Urine pH 5.0 (5.0-7.0) 06/19/21 Unknown Ur Specific [place] 1.018 (1.003-1.030) 06/19/21 Unknown Urine Protein 100 mg/dl mg/dL (Negative) 06/19/21 Unknown Urine Glucose (UA) Neg mg/dL (Negative) 06/19/21 Unknown Urine Ketones Tr mg/dL (Negative) 06/19/21 Unknown Urine Blood Mod (Negative) 06/19/21 Unknown Urine Nitrite Neg (Negative) 06/19/21 Unknown Urine Bilirubin Neg (Negative) 06/19/21 Unknown Urine Urobilinogen < 2.0 mg/dL (<2.0) 06/19/21 Unknown Ur Leukocyte Esterase Sm (Negative) 06/19/21 Unknown Urine WBC (Auto) 36.0 /HPF (0.0-6.0) H 06/19/21 Unknown Urine RBC (Auto) 26.0 /HPF (0.0-6.0) 06/19/21 Unknown U Epithel Cells (Auto) 1.0 /HPF (0-13.0) 06/19/21 Unknown Urine Mucus Few /HPF 06/19/21 Unknown Assessment and Plan Assessment and plan: Colitis. Sepsis. Patient meets criteria given the tachycardia, tachypnea and diagnosis of colitis/UTI Diverticulosis Acute kidney injury likely secondary to vasomotor nephropathy. UTI Constipation Ureteral stent Hypertension 06/19/2021. CT scan completed earlier this morning reveals marked dilatation of the colon to the level of the splenic flexure. There is significant dilatation of the proximal with fecal material and fluid. There is marked thickening of the level at the splenic flexure. Findings represent diffuse colitis. Patient with colitis that is refractory to outpatient treatment. The patient will be restarted on antibiotics of Levaquin and Flagyl. We will reconsult GI and surgery for further evaluation. Start IV fluid hydration and follow-up BMP.
[2021-06-19] MEDS ORDERED: HYDROcodone/ACETAMINOPHEN 5-325 MG TAB PO PRN (08:38)
[2021-06-19] MEDS ORDERED: METOCLOPRAMIDE 10 MG/2 ML INJ IV PRN (08:38)
[2021-06-19] MEDS ORDERED: MORPHINE 4 MG/1 ML INJ IV PRN (08:38)
[2021-06-19] MEDS ORDERED: ACETAMINOPHEN 325 MG TAB PO PRN ×2 (08:38)
[2021-06-19] MEDS ORDERED: ONDANSETRON 4 MG/2 ML INJ IV PRN (08:38)
[2021-06-19] MEDS ORDERED: cefTRIAXone/NS 1 GM/50 ML 1 GM/50 ML BAG IV SCH (09:00)
[2021-06-19] MEDS ORDERED: MORPHINE 2 MG/1 ML INJ IV PRN (10:02)
--- NOTE | 2021-06-19 10:55 | Consultation ---
History of Present Illness Consult date: 06/19/21 Reason for consult: abdominal pain Chief complaint: abd pain - History of present illness History of present illness: 86-year-old male with a past medical history of kidney stones who presents to the emergency room with complaints of worsening diffuse abdominal pain. Pt was hospitalized from 06/16/21 to 06/18/21 at [facility] for the same pain that was ongoing for 3 days prior to presentation. The patient states that the pain moves all over his abdomen. It is crampy in nature and feels like gas moving a nd rumbling in the abdomen. He states he has never had pain like this in the past. He does also complain of difficulty having a bowel movement. He has a large BM yesterday after receiving suppository and enema. He was also passing flatus. He was given golytely but did not tolerate it. No nausea or vomiting. He denies fevers or chills. Patient states he has never had a colonoscopy. Ct scan A/P was performed and showed thickening of colon with dilation of right colon up to splenic flexure with large amount of retained stool. Past History Past Medical History: hypertension, other (Recent diverticulitis, kidney stones) Past Surgical History: Other (Left-sided ureteral stent) Social history: no significant social history Family history: no significant family history Medications and Allergies Allergies Allergy/AdvReac Type Severity Reaction Status Date / Time Penicillins Allergy Anaphylaxis Verified 06/16/21 03:39 red dye AdvReac Anaphylaxis Verified 06/15/21 21:43 Home Medications Medication Instructions Recorded Confirmed Last Taken Type Docusate Sodium [Colace] 100 mg PO BID PRN #20 capsule 06/16/21 Unknown Rx Glucophage 500 mg PO BID 06/17/21 06/17/21 06/13/21 History Losartan [Cozaar] 100 mg PO QDAY 06/17/21 06/17/21 06/13/21 History Losartan [Cozaar] 100 mg PO QDAY tablet 06/18/21 Unknown Rx Sennosides 8.6 mg PO Q12HR PRN 30 Days #60 06/18/21 Unknown Rx tablet hydroCHLOROthiazide [HCTZ] 25 mg PO QDAY 30 Days #30 tablet 06/18/21 Unknown Rx levoFLOXacin [Levaquin TAB] 500 mg PO Q24HR 3 Days #3 tablet 06/18/21 Unknown Rx metFORMIN [Glucophage] 500 mg PO BID 30 Days #60 tablet 06/18/21 Unknown Rx metroNIDAZOLE [Flagyl] 500 mg PO Q8HR 3 Days #9 tablet 06/18/21 Unknown Rx Active Meds: Active Medications Acetaminophen (Acetaminophen 325 Mg Tab) 650 mg PO Q4H PRN PRN Reason: Pain MILD(1-3)/Fever >100.5/CERDA Hydrocodone Bitart/Acetaminophen (Hydrocodone/Acetaminophen 5-325 Mg Tab) 2 each PO Q6H PRN PRN Reason: Pain, Moderate (4-6) Bisacodyl (Bisacodyl 10 Mg Rect Supp) 10 mg [place] QDAY PRN PRN Reason: Constipation unrelieved by MOM Docusate Sodium (Docusate Sodium 100 Mg Cap) 100 mg PO BID MARIANA Heparin Sodium (Porcine) (Heparin 5,000 Unit/1 Ml Vial) 5,000 unit SUB-Q Q8HR MARIANA Hydromorphone HCl (Hydromorphone 1 Mg/1 Ml Inj) 0.25 mg IV Q4H PRN PRN Reason: Pain , Severe (7-10) Sodium Chloride (Nacl 0.9% 1000 Ml) 1,000 mls @ 75 mls/hr IV DIRECT MARIANA Levofloxacin/Dextrose (Levaquin 750mg/150ml) 750 mg in 150 mls @ 100 mls/hr IV Q48H MARIANA; Protocol Metronidazole (Flagyl 500 Mg/100 Ml) 500 mg in 100 mls @ 100 mls/hr IV Q8H MARIANA; Protocol Metoclopramide HCl (Metoclopramide 10 Mg/2 Ml Inj) 5 mg IV Q6H PRN PRN Reason: Nausea And Vomiting Morphine Sulfate (Morphine 2 Mg/1 Ml Inj) 2 mg IV Q4H PRN PRN Reason: Pain, Moderate (4-6) Ondansetron HCl (Ondansetron 4 Mg/2 Ml Inj) 4 mg IV Q8H PRN PRN Reason: Nausea And Vomiting Senna (Sennosides 8.6 Mg Tab) 8.6 mg PO Q12HR MARIANA Sodium Chloride (Sodium Chloride 0.9% 10 Ml Flush Syringe) 10 ml IV BID MARIANA Sodium Chloride (Sodium Chloride 0.9% 10 Ml Flush Syringe) 10 ml IV PRN PRN PRN Reason: LINE FLUSH Review of Systems All systems: negative (10 pt ROS performed and negative except for that listed in HPI) Exam Vital Signs Temp Pulse Resp BP Pulse Ox 98.8 F 88 18 124/64 96 06/19/21 00:49 06/19/21 00:49 06/19/21 00:49 06/19/21 00:49 06/19/21 00:49 Narrative exam: Gen: AAox3. NAD CV: s1, S2+ resp: even and unlabored Abd: soft, mildy distended, mild diffuse TTP. no r/r/g Ext: no c/c/e Results - Labs 06/19/21 01:46 06/19/21 01:46 Abnormal lab results 06/19/21 06/19/21 06/19/21 Range/Units 01:46 01:46 08:36 Seg Neuts % (Manual) 86.0 H (40.0-70.0) % Lymphocytes % (Manual) 12.0 L (13.4-35.0) % Lymphocytes # (Manual) 0.8 L (1.2-5.4) K/mm3 Potassium 3.4 L (3.6-5.0) mmol/L Chloride 97.6 L (98-107) mmol/L BUN 28 H (9-20) mg/dL Creatinine 2.1 H (0.8-1.3) mg/dL Glucose 171 H (75-100) mg/dL Direct Bilirubin 0.3 H (0-0.2) mg/dL Ammonia 20.0 L (25-60) umol/L Total Protein 6.1 L D (6.3-8.2) g/dL Albumin 3.5 L (3.9-5) g/dL Urine WBC (Auto) (0.0-6.0) /HPF 06/19/21 Range/Units Unknown Seg Neuts % (Manual) (40.0-70.0) % Lymphocytes % (Manual) (13.4-35.0) % Lymphocytes # (Manual) (1.2-5.4) K/mm3 Potassium (3.6-5.0) mmol/L Chloride (98-107) mmol/L BUN (9-20) mg/dL Creatinine (0.8-1.3) mg/dL Glucose (75-100) mg/dL Direct Bilirubin (0-0.2) mg/dL Ammonia (25-60) umol/L Total Protein (6.3-8.2) g/dL Albumin (3.9-5) g/dL Urine WBC (Auto) 36.0 H (0.0-6.0) /HPF Diabetes panel 06/19/21 Range/Units 01:46 Sodium 137 (137-145) mmol/L Potassium 3.4 L (3.6-5.0) mmol/L Chloride 97.6 L (98-107) mmol/L Carbon Dioxide 23 (22-30) mmol/L BUN 28 H (9-20) mg/dL Creatinine 2.1 H (0.8-1.3) mg/dL Glucose 171 H (75-100) mg/dL Calcium 8.6 (8.4-10.2) mg/dL AST 32 (5-40) units/L ALT 15 (7-56) units/L Alkaline Phosphatase 115 (35-129) units/L Total Protein 6.1 L D (6.3-8.2) g/dL Albumin 3.5 L (3.9-5) g/dL Calcium panel 06/19/21 Range/Units 01:46 Calcium 8.6 (8.4-10.2) mg/dL Albumin 3.5 L (3.9-5) g/dL Pituitary panel 06/19/21 Range/Units 01:46 Sodium 137 (137-145) mmol/L Potassium 3.4 L (3.6-5.0) mmol/L Chloride 97.6 L (98-107) mmol/L Carbon Dioxide 23 (22-30) mmol/L BUN 28 H (9-20) mg/dL Creatinine 2.1 H (0.8-1.3) mg/dL Glucose 171 H (75-100) mg/dL Calcium 8.6 (8.4-10.2) mg/dL Adrenal panel 06/19/21 Range/Units 01:46 Sodium 137 (137-145) mmol/L Potassium 3.4 L (3.6-5.0) mmol/L Chloride 97.6 L (98-107) mmol/L Carbon Dioxide 23 (22-30) mmol/L BUN 28 H (9-20) mg/dL Creatinine 2.1 H (0.8-1.3) mg/dL Glucose 171 H (75-100) mg/dL Calcium 8.6 (8.4-10.2) mg/dL Total Bilirubin 0.90 (0.1-1.2) mg/dL AST 32 (5-40) units/L ALT 15 (7-56) units/L Alkaline Phosphatase 115 (35-129) units/L Total Protein 6.1 L D (6.3-8.2) g/dL Albumin 3.5 L (3.9-5) g/dL - Imaging CT scan - abdomen: report reviewed, image reviewed CT scan - pelvis: report reviewed, image reviewed Assessment and Plan 86 yo M with 1. abd pain 2. colonic dilatation, possible left sided colon mass 3. SILAS Plan: 1. NPO 2. gastrograffin enema 3. PRN pain control 4. IVF 5. empiric abx 6. Pt currently refusing invasive procedures. Will follow up after gastrograffin enema results 7. Recommend cards c/s for preop risk assessment if surgery needed Thank you, please call with questions D/W Dr. Dawson
[2021-06-19] MEDS: metroNIDAZOLE/NS 500 MG/100 ML 500 MG/100 ML BAG IV SCH ×2 (12:33→20:32)
[2021-06-19] MEDS: HYDROmorphone 1 MG/1 ML INJ IV PRN (12:35)
[2021-06-19] MEDS: DOCUSATE SODIUM 100 MG CAP PO SCH ×2 (12:49→22:46)
[2021-06-19] MEDS: SENNOSIDES 8.6 MG TAB PO SCH ×2 (12:49→22:46)
[2021-06-19] MEDS: HEPARIN 5,000 UNIT/1 ML VIAL SUB-Q SCH ×2 (13:04→22:45)
--- NOTE | 2021-06-19 14:38 | Fluoroscopy Report ---
Water-soluble enema Indication: Constipation, proximal colonic obstruction, abnormal narrowing near the region of the sp lenic flexure. Technique: Single contrast water-soluble technique utilized to evaluate the colon. COMPARISON: CT abdomen/pelvis from today Findings: To begin the exam, a rectal catheter was placed and balloon insufflated. A technical support intern image was obtained which showed a left-sided double-J ureteral stent and mild gas-filled prominence of the dis michael small bowel. Water-soluble contrast was then instilled in a retrograde fashion under gravity. There is extensive c olonic diverticulosis in the sigmoid colon extending into the descending colon. There was an abrupt c ut off in the proximal descending colon/splenic flexure region and contrast would not pass. The patie nt was extremely uncomfortable and the distal colon was quite distended, still without contrast passa ge into the more proximal colon (i.e. right colon and transverse colon), therefore I then terminated the exam. Impression: 1. Failure of contrast passage beyond the proximal descending colon/splenic flexure. Findings are con cerning for an underlying mass, especially when evaluated with the CT exam from earlier today. I disc ussed these findings with Dr. Latham at 2:30 PM today. 2. Extensive colonic diverticulosis. Fluoroscopic time: 1.4 minutes Number of fluoroscopic images: 12 Signer Name: Aayush Em MD Signed: 06/19/2021 2:33 PM Workstation Name: [id number]
[2021-06-19] MEDS: SODIUM CHLORIDE 0.9% 1000 ML 1,000 ML IV SCH (16:22)
--- NOTE | 2021-06-19 22:23 | Consultation ---
History of Present Illness - Reason for Consult Consult date: 06/19/21 Colonic obstruction Requesting physician: KAITLIN PERALES - History of Present Illness Pt well-known to me from prior admission, and was discharged yesterday. He had abd pain, with distention of proximal colon and thickening of descending and sigmoid colon of uncertain significance. DDx included mass vs infection/inflammation. Colonoscopy and possible surgery were discussed and pt was reluctant. He had a BM yesterday, and was discharge. He came back due to recurrent pain in upper abdomen, from RUQ to L side. No N/V. Meds reviewed. Past History Past Medical History: hypertension, other (Recent diverticulitis, kidney stones) Past Surgical History: Other (Left-sided ureteral stent) Social history: no significant social history Family history: no significant family history Medications and Allergies Allergies Allergy/AdvReac Type Severity Reaction Status Date / Time Penicillins Allergy Anaphylaxis Verified 06/16/21 03:39 red dye AdvReac Anaphylaxis Verified 06/15/21 21:43 Home Medications Medication Instructions Recorded Confirmed Last Taken Type Docusate Sodium [Colace] 100 mg PO BID PRN #20 capsule 06/16/21 06/19/21 06/18/21 Rx Glucophage 500 mg PO BID 06/17/21 06/19/21 06/18/21 History Losartan [Cozaar] 100 mg PO QDAY tablet 06/18/21 06/19/21 06/18/21 Rx Sennosides 8.6 mg PO Q12HR PRN 30 Days #60 06/18/21 06/19/21 06/18/21 Rx tablet hydroCHLOROthiazide [HCTZ] 25 mg PO QDAY 30 Days #30 tablet 06/18/21 06/19/21 06/18/21 Rx levoFLOXacin [Levaquin TAB] 500 mg PO Q24HR 3 Days #3 tablet 06/18/21 06/19/21 06/18/21 Rx metFORMIN [Glucophage] 500 mg PO BID 30 Days #60 tablet 06/18/21 06/19/21 06/18/21 Rx metroNIDAZOLE [Flagyl] 500 mg PO Q8HR 3 Days #9 tablet 06/18/21 06/19/21 06/18/21 Rx Active Meds: Active Medications Acetaminophen (Acetaminophen 325 Mg Tab) 650 mg PO Q4H PRN PRN Reason: Pain MILD(1-3)/Fever >100.5/CERDA Hydrocodone Bitart/Acetaminophen (Hydrocodone/Acetaminophen 5-325 Mg Tab) 2 each PO Q6H PRN PRN Reason: Pain, Moderate (4-6) Bisacodyl (Bisacodyl 10 Mg Rect Supp) 10 mg NM QDAY PRN PRN Reason: Constipation unrelieved by MOM Docusate Sodium (Docusate Sodium 100 Mg Cap) 100 mg PO BID [facility] Last Admin: 06/19/21 12:49 Dose: Not Given Documented by: Heparin Sodium (Porcine) (Heparin 5,000 Unit/1 Ml Vial) 5,000 unit SUB-Q Q8HR MARIANA Last Admin: 06/19/21 13:04 Dose: 5,000 unit Documented by: Hydromorphone HCl (Hydromorphone 1 Mg/1 Ml Inj) 0.25 mg IV Q4H PRN PRN Reason: Pain , Severe (7-10) Last Admin: 06/19/21 12:35 Dose: 0.25 mg Documented by: Sodium Chloride (Nacl 0.9% 1000 Ml) 1,000 mls @ 75 mls/hr IV DIRECT MARIANA Last Admin: 06/19/21 16:22 Dose: 75 mls/hr Documented by: Levofloxacin/Dextrose (Levaquin 750mg/150ml) 750 mg in 150 mls @ 100 mls/hr IV Q48H MARIANA; Protocol Metronidazole (Flagyl 500 Mg/100 Ml) 500 mg in 100 mls @ 100 mls/hr IV Q8H MARIANA; Protocol Last Admin: 06/19/21 20:32 Dose: 100 mls/hr Documented by: Metoclopramide HCl (Metoclopramide 10 Mg/2 Ml Inj) 5 mg IV Q6H PRN PRN Reason: Nausea And Vomiting Morphine Sulfate (Morphine 2 Mg/1 Ml Inj) 2 mg IV Q4H PRN PRN Reason: Pain, Moderate (4-6) Last Admin: 06/19/21 16:34 Dose: 2 mg Documented by: Ondansetron HCl (Ondansetron 4 Mg/2 Ml Inj) 4 mg IV Q8H PRN PRN Reason: Nausea And Vomiting Senna (Sennosides 8.6 Mg Tab) 8.6 mg PO Q12HR [facility] Last Admin: 06/19/21 12:49 Dose: Not Given Documented by: Sodium Chloride (Sodium Chloride 0.9% 10 Ml Flush Syringe) 10 ml IV BID MARIANA Last Admin: 06/19/21 12:39 Dose: 10 ml Documented by: Sodium Chloride (Sodium Chloride 0.9% 10 Ml Flush Syringe) 10 ml IV PRN PRN PRN Reason: LINE FLUSH Review of Systems All systems: negative (as noted per HPI.) Exam - Constitutional Vitals: Temp Pulse Resp BP Pulse Ox 98.8 F 75 22 127/63 100 06/19/21 00:49 06/19/21 09:00 06/19/21 09:00 06/19/21 09:00 06/19/21 09:30 General appearance: Present: no acute distress - EENT Eyes: Present: PERRL, EOM intact ENT: hearing intact - Respiratory Respiratory effort: normal Respiratory: bilateral: CTA - Cardiovascular Rhythm: regular Heart Sounds: Present: S1 & S2 - Extremities Extremities: No edema - Abdominal General gastrointestinal: Present: soft, tender (Mild-moderate, upper abd and R side) Results - Labs CBC & Chem 7: 06/19/21 01:46 06/19/21 01:46 Labs: Abnormal lab results 06/19/21 06/19/21 06/19/21 Range/Units 01:46 01:46 08:36 Seg Neuts % (Manual) 86.0 H (40.0-70.0) % Lymphocytes % (Manual) 12.0 L (13.4-35.0) % Lymphocytes # (Manual) 0.8 L (1.2-5.4) K/mm3 Potassium 3.4 L (3.6-5.0) mmol/L Chloride 97.6 L (98-107) mmol/L BUN 28 H (9-20) mg/dL Creatinine 2.1 H (0.8-1.3) mg/dL Glucose 171 H (75-100) mg/dL POC Glucose (70-105) mg/dL Direct Bilirubin 0.3 H (0-0.2) mg/dL Ammonia 20.0 L (25-60) umol/L Total Protein 6.1 L D (6.3-8.2) g/dL Albumin 3.5 L (3.9-5) g/dL Urine WBC (Auto) (0.0-6.0) /HPF 10/29/21 10/29/21 Range/Units 12:18 Unknown Seg Neuts % (Manual) (40.0-70.0) % Lymphocytes % (Manual) (13.4-35.0) % Lymphocytes # (Manual) (1.2-5.4) K/mm3 Potassium (3.6-5.0) mmol/L Chloride (98-107) mmol/L BUN (9-20) mg/dL Creatinine (0.8-1.3) mg/dL Glucose (75-100) mg/dL POC Glucose 179 H (70-105) mg/dL Direct Bilirubin (0-0.2) mg/dL Ammonia (25-60) umol/L Total Protein (6.3-8.2) g/dL Albumin (3.9-5) g/dL Urine WBC (Auto) 36.0 H (0.0-6.0) /HPF - Imaging and Cardiology Abdominal x-ray: report reviewed (Barium enema shows obstruction at splenic flexure, c/w neoplasm) CT scan - abdomen: report reviewed (Findings c/w splenic mass lesion) Assessment and Plan 1. 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 - will discuss with Dr. Morales, Surgery, re: Surgery vs colonoscopic evaluation first, prior to eventual surgery.
[2021-06-20] MEDS: metroNIDAZOLE/NS 500 MG/100 ML 500 MG/100 ML BAG IV SCH ×3 (04:06→20:30)
[2021-06-20] MEDS: HEPARIN 5,000 UNIT/1 ML VIAL SUB-Q SCH ×3 (06:00→22:34)
[2021-06-20] MEDS: SODIUM CHLORIDE 0.9% 1000 ML 1,000 ML IV SCH (06:14)
[2021-06-20 06:28] LABS: Eosinophils % (Auto) 0.1 % (0.0-4.3); Hematocrit 38.1 % (35.5-45.6); Hemoglobin 13.1 gm/dl (11.8-15.2); Lymphocytes # (Auto) 0.3 K/mm3 (1.2-5.4); Lymphocytes % (Auto) 4.6 % (13.4-35.0); Mean Corpuscular HGB Conc 34 % (32-34); Mean Corpuscular Volume 87 fl (84-94); Monocytes # (Auto) 0.4 K/mm3 (0.0-0.8); Monocytes % (Auto) 6.7 % (0.0-7.3); Platelet Count 167 K/mm3 (140-440); Red Blood Count 4.39 M/mm3 (3.65-5.03); Red Cell Distribution Width 14.2 % (13.2-15.2)
[2021-06-20 06:48] LABS: Calcium 8.7 mg/dL (8.4-10.2)
--- NOTE | 2021-06-20 08:59 | Progress Note ---
Assessment and Plan Assessment and plan: Colitis. Sepsis. Patient meets criteria given the tachycardia, tachypnea and diagnosis of colitis/UTI Diverticulosis Acute kidney injury likely secondary to vasomotor nephropathy. UTI Constipation Ureteral stent Hypertension 06/19/2021. CT scan completed earlier this morning reveals marked dilatation of the colon to the level of the splenic flexure. There is significant dilatation of the proximal with fecal material and fluid. There is marked thickening of the level at the splenic flexure. Findings represent diffuse colitis. Patient with colitis that is refractory to outpatient treatment. The patient will be restarted on antibiotics of Levaquin and Flagyl. We will reconsult GI and surgery for further evaluation. Start IV fluid hydration and follow-up BMP. 06/20/2021. Patient with possible left-sided colon mass. Ct scan A/P was performed and showed thickening of colon with dilation of right colon up to splenic flexure with large amount of retained stool. CT results along with barium enema suggestive of colon mass. Surgery explained surgical option of resection with likely colostomy. Patient to discuss next steps with 5 children. Patient has not made a decision as of yet. Continue antibiotics for UTI. Consult nephrology for acute kidney injury. Patient likely has some underlying chronic kidney disease. History Interval history: No new issues overnight. Hospitalist Physical - Constitutional Vitals: Temp Pulse Resp BP Pulse Ox 98.9 F 84 18 131/65 93 06/20/21 05:16 06/20/21 05:16 06/20/21 05:16 06/20/21 05:16 06/20/21 05:16 General appearance: Present: no acute distress - EENT Eyes: Present: PERRL, EOM intact ENT: hearing intact, clear oral mucosa, dentition normal - Neck Neck: Present: supple, normal ROM - Respiratory Respiratory effort: normal Respiratory: bilateral: CTA - Cardiovascular Rhythm: regular Heart Sounds: Present: S1 & S2. Absent: gallop, rub - Extremities Extremities: no ischemia, No edema, Full ROM - Abdominal General gastrointestinal: soft, non-tender, non-distended, normal bowel sounds - Integumentary Integumentary: Present: clear, warm, dry - Neurologic Neurologic: CNII-XII intact, moves all extremities Results - Labs CBC & Chem 7: 06/20/21 04:00 06/20/21 04:00 Labs: Laboratory Last Values WBC 6.6 K/mm3 (4.5-11.0) 06/20/21 04:00 RBC 4.39 M/mm3 (3.65-5.03) 06/20/21 04:00 Hgb 13.1 gm/dl (11.8-15.2) 06/20/21 04:00 Hct 38.1 % (35.5-45.6) 06/20/21 04:00 MCV 87 fl (84-94) 06/20/21 04:00 MCH 30 pg (28-32) 06/20/21 04:00 MCHC 34 % (32-34) 06/20/21 04:00 RDW 14.2 % (13.2-15.2) 06/20/21 04:00 Plt Count 167 K/mm3 (140-440) 06/20/21 04:00 Lymph % (Auto) 4.6 % (13.4-35.0) L 06/20/21 04:00 [place] % (Auto) 6.7 % (0.0-7.3) 06/20/21 04:00 Eos % (Auto) 0.1 % (0.0-4.3) 06/20/21 04:00 Baso % (Auto) 0.0 % (0.0-1.8) 06/20/21 04:00 Lymph # (Auto) 0.3 K/mm3 (1.2-5.4) L 06/20/21 04:00 [place] # (Auto) 0.4 K/mm3 (0.0-0.8) 06/20/21 04:00 Eos # (Auto) 0.0 K/mm3 (0.0-0.4) 06/20/21 04:00 Baso # (Auto) 0.0 K/mm3 (0.0-0.1) 06/20/21 04:00 Add Manual Diff Complete 06/19/21 01:46 Total Counted 100 06/19/21 01:46 Seg Neutrophils % 88.6 % (40.0-70.0) H 06/20/21 04:00 Seg Neuts % (Manual) 86.0 % (40.0-70.0) H 06/19/21 01:46 Lymphocytes % (Manual) 12.0 % (13.4-35.0) L 06/19/21 01:46 Monocytes % (Manual) 2.0 % (0.0-7.3) 06/19/21 01:46 Nucleated RBC % Not Reportable 06/19/21 01:46 Seg Neutrophils # 5.9 K/mm3 (1.8-7.7) 06/20/21 04:00 Seg Neutrophils # Man 5.6 K/mm3 (1.8-7.7) 06/19/21 01:46 Band Neutrophils # 0.0 K/mm3 06/19/21 01:46 Lymphocytes # (Manual) 0.8 K/mm3 (1.2-5.4) L 06/19/21 01:46 Abs React Lymphs (Man) 0.0 K/mm3 06/19/21 01:46 Monocytes # (Manual) 0.1 K/mm3 (0.0-0.8) 06/19/21 01:46 Eosinophils # (Manual) 0.0 K/mm3 (0.0-0.4) 06/19/21 01:46 Basophils # (Manual) 0.0 K/mm3 (0.0-0.1) 06/19/21 01:46 Metamyelocytes # 0.0 K/mm3 06/19/21 01:46 Myelocytes # 0.0 K/mm3 06/19/21 01:46 Promyelocytes # 0.0 K/mm3 06/19/21 01:46 Blast Cells # 0.0 K/mm3 06/19/21 01:46 WBC Morphology Not Reportable 06/19/21 01:46 Hypersegmented Neuts Not Reportable 06/19/21 01:46 Hyposegmented Neuts Not Reportable 06/19/21 01:46 Hypogranular Neuts Not Reportable 06/19/21 01:46 Smudge Cells Not Reportable 06/19/21 01:46 Toxic Granulation Not Reportable 06/19/21 01:46 Toxic Vacuolation Not Reportable 06/19/21 01:46 Dohle Bodies Not Reportable 06/19/21 01:46 Pelger-Huet Anomaly Not Reportable 06/19/21 01:46 Geovanni Rods Not Reportable 06/19/21 01:46 Platelet Estimate Consistent w auto 06/19/21 01:46 Clumped Platelets Not Reportable 06/19/21 01:46 Plt Clumps, EDTA Not Reportable 06/19/21 01:46 Large Platelets Not Reportable 06/19/21 01:46 Giant Platelets Not Reportable 06/19/21 01:46 Platelet Satelliting Not Reportable 06/19/21 01:46 Plt Morphology Comment Not Reportable 06/19/21 01:46 RBC Morphology Normal 06/19/21 01:46 Dimorphic RBCs Not Reportable 06/19/21 01:46 Polychromasia Not Reportable 06/19/21 01:46 Hypochromasia Not Reportable 06/19/21 01:46 Poikilocytosis Not Reportable 06/19/21 01:46 Anisocytosis Not Reportable 06/19/21 01:46 Microcytosis Not Reportable 06/19/21 01:46 Macrocytosis Not Reportable 06/19/21 01:46 Spherocytes Not Reportable 06/19/21 01:46 Pappenheimer Bodies Not Reportable 06/19/21 01:46 Sickle Cells Not Reportable 06/19/21 01:46 Target Cells Not Reportable 06/19/21 01:46 Tear Drop Cells Not Reportable 06/19/21 01:46 Ovalocytes Not Reportable 06/19/21 01:46 Helmet Cells Not Reportable 06/19/21 01:46 [place] Bodies Not Reportable 06/19/21 01:46 [place] Rings Not Reportable 06/19/21 01:46 [place] Cells Not Reportable 06/19/21 01:46 Bite Cells Not Reportable 06/19/21 01:46 Crenated Cell Not Reportable 06/19/21 01:46 Elliptocytes Not Reportable 06/19/21 01:46 Acanthocytes (Spur) Not Reportable 06/19/21 01:46 Rouleaux Not Reportable 06/19/21 01:46 Hemoglobin C Crystals Not Reportable 06/19/21 01:46 Schistocytes Not Reportable 06/19/21 01:46 Malaria parasites Not Reportable 06/19/21 01:46 Jamar Bodies Not Reportable 06/19/21 01:46 Hem Pathologist Commnt No 06/19/21 01:46 Sodium 139 mmol/L (137-145) 06/20/21 04:00 Potassium 3.4 mmol/L (3.6-5.0) L 06/20/21 04:00 Chloride 100.8 mmol/L (98-107) 06/20/21 04:00 Carbon Dioxide 21 mmol/L (22-30) L 06/20/21 04:00 Anion Gap 21 mmol/L 06/20/21 04:00 BUN 36 mg/dL (9-20) H 06/20/21 04:00 Creatinine 2.1 mg/dL (0.8-1.3) H 06/20/21 04:00 Estimated GFR 30 ml/min 06/20/21 04:00 BUN/Creatinine Ratio 17 % 06/20/21 04:00 Glucose 174 mg/dL (75-100) H 06/20/21 04:00 POC Glucose 179 mg/dL (70-105) H 06/19/21 12:18 Calcium 8.7 mg/dL (8.4-10.2) 06/20/21 04:00 Total Bilirubin 0.90 mg/dL (0.1-1.2) 06/19/21 01:46 Direct Bilirubin 0.3 mg/dL (0-0.2) H 06/19/21 01:46 Indirect Bilirubin 0.6 mg/dL 06/19/21 01:46 AST 32 units/L (5-40) 06/19/21 01:46 ALT 15 units/L (7-56) 06/19/21 01:46 Alkaline Phosphatase 115 units/L (35-129) 06/19/21 01:46 Ammonia 20.0 umol/L (25-60) L 06/19/21 08:36 Total Protein 6.1 g/dL (6.3-8.2) L D 06/19/21 01:46 Albumin 3.5 g/dL (3.9-5) L 06/19/21 01:46 Albumin/Globulin Ratio 1.3 % 06/19/21 01:46 Lipase 16 units/L (13-60) 06/19/21 01:46 Urine Color [place] (Yellow) 06/19/21 Unknown Urine Turbidity Clear (Clear) 06/19/21 Unknown Urine pH 5.0 (5.0-7.0) 06/19/21 Unknown Ur Specific [place] 1.018 (1.003-1.030) 06/19/21 Unknown Urine Protein 100 mg/dl mg/dL (Negative) 06/19/21 Unknown Urine Glucose (UA) Neg mg/dL (Negative) 06/19/21 Unknown Urine Ketones Tr mg/dL (Negative) 06/19/21 Unknown Urine Blood Mod (Negative) 06/19/21 Unknown Urine Nitrite Neg (Negative) 06/19/21 Unknown Urine Bilirubin Neg (Negative) 06/19/21 Unknown Urine Urobilinogen < 2.0 mg/dL (<2.0) 06/19/21 Unknown Ur Leukocyte Esterase Sm (Negative) 06/19/21 Unknown Urine WBC (Auto) 36.0 /HPF (0.0-6.0) H 06/19/21 Unknown Urine RBC (Auto) 26.0 /HPF (0.0-6.0) 06/19/21 Unknown U Epithel Cells (Auto) 1.0 /HPF (0-13.0) 06/19/21 Unknown Urine Mucus Few /HPF 06/19/21 Unknown Blood Type O POSITIVE 06/19/21 10:12 Antibody Screen Negative 06/19/21 10:12 Active Medications - Current Medications Current Medications: Generic Name Dose Route Start Last Admin Trade Name Freq PRN Reason Stop Dose Admin Acetaminophen 650 mg 06/19/21 08:38 Acetaminophen 325 Mg Tab PO Q4H PRN Pain MILD(1-3)/Fever >100.5/CERDA Hydrocodone Bitart/Acetaminophen 2 each 06/19/21 08:38 Hydrocodone/Acetaminophen 5-325 Mg Tab PO Q6H PRN Pain, Moderate (4-6) Bisacodyl 10 mg 06/19/21 08:38 Bisacodyl 10 Mg Rect Supp [place] QDAY PRN Constipation unrelieved by MOM Docusate Sodium 100 mg 06/19/21 10:00 06/19/21 22:46 Docusate Sodium 100 Mg Cap PO Not Given BID MARIANA Heparin Sodium (Porcine) 5,000 unit 06/19/21 14:00 06/20/21 06:00 Heparin 5,000 Unit/1 Ml Vial SUB-Q 5,000 unit Q8HR MARIANA Administration Hydromorphone HCl 0.25 mg 06/19/21 08:38 06/19/21 12:35 Hydromorphone 1 Mg/1 Ml Inj IV 0.25 mg Q4H PRN Administration Pain , Severe (7-10) Sodium Chloride 1,000 mls @ 75 mls/hr 06/19/21 08:45 06/20/21 06:14 Nacl 0.9% 1000 Ml IV 75 mls/hr DIRECT MARIANA Administration Levofloxacin/Dextrose 750 mg in 150 mls @ 100 mls/hr 06/20/21 22:00 Levaquin 750mg/150ml IV Q48H MARIANA Protocol Metronidazole 500 mg in 100 mls @ 100 mls/hr 06/19/21 12:00 06/20/21 04:06 Flagyl 500 Mg/100 Ml IV 100 mls/hr Q8H MARIANA Administration Protocol Metoclopramide HCl 5 mg 06/19/21 08:38 Metoclopramide 10 Mg/2 Ml Inj IV Q6H PRN Nausea And Vomiting Morphine Sulfate 2 mg 06/19/21 10:02 06/19/21 16:34 Morphine 2 Mg/1 Ml Inj IV 2 mg Q4H PRN Administration Pain, Moderate (4-6) Ondansetron HCl 4 mg 06/19/21 08:38 Ondansetron 4 Mg/2 Ml Inj IV Q8H PRN Nausea And Vomiting Senna 8.6 mg 06/19/21 10:00 06/19/21 22:46 Sennosides 8.6 Mg Tab PO Not Given Q12HR MARIANA Sodium Chloride 10 ml 06/19/21 10:00 06/19/21 22:45 Sodium Chloride 0.9% 10 Ml Flush Syringe IV 10 ml BID MARIANA Administration Sodium Chloride 10 ml 06/19/21 08:38 Sodium Chloride 0.9% 10 Ml Flush Syringe IV PRN PRN LINE FLUSH
--- NOTE | 2021-06-20 10:44 | Consultation ---
History of Present Illness - Reason for Consult Consult date: 06/20/21 acute renal failure - History of Present Illness The patient is an 86 YO male with history significant for DM-2, HTN, CKD-3 and left-sided ureteral stent who presented to [facility] ED 06/19 with complaints of abdominal pain. The patient was recently admitted here on 06/16 and discharged on 06/18 for same complaints, diagnosed with diverticulitis and treated with Cipro/Flagyl. GI and surgery saw the patient in consultation. Patient reports not having a bowel movement since his discharge and reports the pain is 05/31. Admits decreased PO intake. No fever, chills, N, V, D, dysuria, hematuria, cp, sob, leg swelling, dizziness or syncope. CT abdomen showed marked dilatation of the colon to the level of the splenic flexure, there is significant dilatation of the proximal with fecal material and fluid, there is marked thickening of the level at the splenic flexure. Findings represent diffuse colitis. Labs significant for creatinine of 2.1, BUN 28 and K 3.4. Nephrology was consulted for further evaluation and treatment of SILAS. Past History Past Medical History: diabetes, hypertension, renal failure, other (Recent diverticulitis, kidney stones) Past Surgical History: Other (Left-sided ureteral stent) Social history: no significant social history Family history: no significant family history Medications and Allergies Allergies Allergy/AdvReac Type Severity Reaction Status Date / Time Penicillins Allergy Anaphylaxis Verified 06/16/21 03:39 red dye AdvReac Anaphylaxis Verified 06/15/21 21:43 Home Medications Medication Instructions Recorded Confirmed Last Taken Type Docusate Sodium [Colace] 100 mg PO BID PRN #20 capsule 06/16/21 06/19/21 06/18/21 Rx Glucophage 500 mg PO BID 06/17/21 06/19/21 06/18/21 History Losartan [Cozaar] 100 mg PO QDAY tablet 06/18/21 06/19/21 06/18/21 Rx Sennosides 8.6 mg PO Q12HR PRN 30 Days #60 06/18/21 06/19/21 06/18/21 Rx tablet hydroCHLOROthiazide [HCTZ] 25 mg PO QDAY 30 Days #30 tablet 06/18/21 06/19/21 06/18/21 Rx levoFLOXacin [Levaquin TAB] 500 mg PO Q24HR 3 Days #3 tablet 06/18/21 06/19/21 06/18/21 Rx metFORMIN [Glucophage] 500 mg PO BID 30 Days #60 tablet 06/18/21 06/19/21 06/18/21 Rx metroNIDAZOLE [Flagyl] 500 mg PO Q8HR 3 Days #9 tablet 06/18/21 06/19/21 06/18/21 Rx Active Meds: Active Medications Acetaminophen (Acetaminophen 325 Mg Tab) 650 mg PO Q4H PRN PRN Reason: Pain MILD(1-3)/Fever >100.5/CERDA Hydrocodone Bitart/Acetaminophen (Hydrocodone/Acetaminophen 5-325 Mg Tab) 2 each PO Q6H PRN PRN Reason: Pain, Moderate (4-6) Bisacodyl (Bisacodyl 10 Mg Rect Supp) 10 mg [place] QDAY PRN PRN Reason: Constipation unrelieved by MOM Docusate Sodium (Docusate Sodium 100 Mg Cap) 100 mg PO BID [facility] Last Admin: 06/19/21 22:46 Dose: Not Given Documented by: Heparin Sodium (Porcine) (Heparin 5,000 Unit/1 Ml Vial) 5,000 unit SUB-Q Q8HR MARIANA Last Admin: 06/20/21 06:00 Dose: 5,000 unit Documented by: Hydromorphone HCl (Hydromorphone 1 Mg/1 Ml Inj) 0.25 mg IV Q4H PRN PRN Reason: Pain , Severe (7-10) Last Admin: 06/19/21 12:35 Dose: 0.25 mg Documented by: Sodium Chloride (Nacl 0.9% 1000 Ml) 1,000 mls @ 75 mls/hr IV DIRECT MARIANA Last Admin: 06/20/21 06:14 Dose: 75 mls/hr Documented by: Levofloxacin/Dextrose (Levaquin 750mg/150ml) 750 mg in 150 mls @ 100 mls/hr IV Q48H MARIANA; Protocol Metronidazole (Flagyl 500 Mg/100 Ml) 500 mg in 100 mls @ 100 mls/hr IV Q8H MARIANA; Protocol Last Admin: 06/20/21 04:06 Dose: 100 mls/hr Documented by: Metoclopramide HCl (Metoclopramide 10 Mg/2 Ml Inj) 5 mg IV Q6H PRN PRN Reason: Nausea And Vomiting Morphine Sulfate (Morphine 2 Mg/1 Ml Inj) 2 mg IV Q4H PRN PRN Reason: Pain, Moderate (4-6) Last Admin: 06/19/21 16:34 Dose: 2 mg Documented by: Ondansetron HCl (Ondansetron 4 Mg/2 Ml Inj) 4 mg IV Q8H PRN PRN Reason: Nausea And Vomiting Senna (Sennosides 8.6 Mg Tab) 8.6 mg PO Q12HR [facility] Last Admin: 06/19/21 22:46 Dose: Not Given Documented by: Sodium Chloride (Sodium Chloride 0.9% 10 Ml Flush Syringe) 10 ml IV BID [facility] Last Admin: 06/19/21 22:45 Dose: 10 ml Documented by: Sodium Chloride (Sodium Chloride 0.9% 10 Ml Flush Syringe) 10 ml IV PRN PRN PRN Reason: LINE FLUSH Review of Systems All systems: negative Exam - Vital Signs Vital signs: Vital Signs Temp Pulse Resp BP Pulse Ox 98.8 F 88 18 124/64 96 06/19/21 00:49 06/19/21 00:49 06/19/21 00:49 06/19/21 00:49 06/19/21 00:49 Results - Lab Results 06/21/21 04:00 06/21/21 04:00 Most recent lab results Calcium 8.7 mg/dL (8.4-10.2) 06/20/21 04:00 Assessment and Plan 1. Acute kidney injury: Vasomotor SILAS superimposed on CKD in the setting of volume depletion. ATN. Imaging negative for hydro. Urine studies ordered. Continue IV fluids. Monitor renal function. Avoid nephrotoxic agents. Meds dosage based on GFR. 2. FEN: Hypokalemia, replete K, monitor. Anion-gap metabolic acidosis, 2/2 SILAS, IV fluids, monitor. Monitor lytes and volume status. 3. Colitis, POA: Followed by GI and General surgery. 4. Sepsis. 5. UTI. 6. Ureteral stent. 7. Hypertension. 8. DM-2: A1C 8.3. Subjective: Patient was seen and examined at the bedside. Examination: General appearance: well-developed, appears stated age, no distress HEENT: atraumatic Neck: trachea midline Respiratory: ctab Heart: S1S2, regular, no murmur Abdomen: soft, bowel sounds heard, distended, NT Integumentary: no obvious rash Neurologic: AO, able to move extremities Ext: no edema
[2021-06-20] MEDS: SENNOSIDES 8.6 MG TAB PO SCH (11:06)
[2021-06-20] MEDS: DOCUSATE SODIUM 100 MG CAP PO SCH ×2 (11:06→22:34)
--- NOTE | 2021-06-20 11:48 | Gastroenterology Progress Note ---
Assessment and Plan - Patient Problems (1) Colonic obstruction Current Visit: Yes Status: Acute Plan to address problem: - Results of the gastrograffin enema noted. Essentially no passage of contrast proximal, indicative of almost complete obstruction. - I recommend surgical intervention, but the patient still has not made up his mind (waiting on family to make the decision). - A colonoscopy at this point, for biopsies, would increase the risk of perforation, and would not change management facilitator - a benign stricture (unlikely) or a mass of this degree would both need resection. Subjective Date of service: 06/20/21 Principal diagnosis: Colon Obstruction Interval history: The patient's enema results were reviewed. He still as significant abdominal distention. He has nausea, and dry heaves, but no hematemesis or blood in the BM. He had a large BM this morning -stool mixed with gastrograffin; his stomach remains very distended however. Objective - Constitutional Vitals: Temp Pulse Resp BP Pulse Ox 98.9 F 84 18 131/65 93 06/20/21 05:16 06/20/21 05:16 06/20/21 05:16 06/20/21 05:16 06/20/21 05:16 General appearance: mild distress - Respiratory Respiratory effort: normal Respiratory: bilateral: CTA - Cardiovascular Rhythm: regular Heart Sounds: Present: S1 & S2 - Gastrointestinal General gastrointestinal: Present: soft, tender (Diffuse tenderness but no rigidity), distended (Marked distention with good bowel sounds) - Labs CBC & Chem 7: 06/20/21 04:00 06/20/21 04:00 Labs: Laboratory Results - last 24 hr 06/19/21 06/19/21 06/20/21 10:12 12:18 04:00 WBC 6.6 RBC 4.39 Hgb 13.1 Hct 38.1 MCV 87 MCH 30 MCHC 34 RDW 14.2 Plt Count 167 Lymph % (Auto) 4.6 L [place] % (Auto) 6.7 Eos % (Auto) 0.1 Baso % (Auto) 0.0 Lymph # (Auto) 0.3 L [place] # (Auto) 0.4 Eos # (Auto) 0.0 Baso # (Auto) 0.0 Seg Neutrophils % 88.6 H Seg Neutrophils # 5.9 Sodium Potassium Chloride Carbon Dioxide Anion Gap BUN Creatinine Estimated GFR BUN/Creatinine Ratio Glucose POC Glucose 179 H Calcium Blood Type O POSITIVE Antibody Screen Negative 06/20/21 04:00 WBC RBC Hgb Hct MCV MCH MCHC RDW Plt Count Lymph % (Auto) [place] % (Auto) Eos % (Auto) Baso % (Auto) Lymph # (Auto) [place] # (Auto) Eos # (Auto) Baso # (Auto) Seg Neutrophils % Seg Neutrophils # Sodium 139 Potassium 3.4 L Chloride 100.8 Carbon Dioxide 21 L Anion Gap 21 BUN 36 H Creatinine 2.1 H Estimated GFR 30 BUN/Creatinine Ratio 17 Glucose 174 H POC Glucose Calcium 8.7 Blood Type Antibody Screen
[2021-06-20] MEDS: POTASSIUM CHLORIDE 10 MEQ 10 MEQ/100 ML BAG IV SCH ×2 (12:18→17:18)
--- NOTE | 2021-06-20 12:37 | Ultrasound Report ---
ULTRASOUND RENAL INDICATION / CLINICAL INFORMATION: SILAS. COMPARISON: None available. FINDINGS: RIGHT KIDNEY: - Length = 9.5 cm. [Normal > 9.0 cm] - Parenchymal Thickness = 1.1 cm. [Normal > 1.5 cm] - Echogenicity: Normal -- hypoechoic or isoechoic to liver/spleen. - Hydronephrosis: None. - Cyst or mass: No significant abnormality. LEFT KIDNEY: - Length = 10.4 cm. [Normal > 9.0 cm] - Parenchymal Thickness = 1.5 cm. [Normal > 1.5 cm] - Echogenicity: Normal -- hypoechoic or isoechoic to liver/spleen. - Hydronephrosis: None. - Cyst or mass: There are 2 simple cysts in the mid to lower kidney, the largest of which measures 3. 3 cm. URINARY BLADDER: 2.2 cm hyperechoic abnormality with posterior shadowing in the urinary bladder is co nsistent with a calculus. ADDITIONAL FINDINGS: There is also vague increased echogenicity in the lower pole of the left kidney centrally, also likely related to calculi. These findings were better seen on the CT of the abdomen a nd pelvis performed yesterday. IMPRESSION: 1. Mild diffuse cortical thinning involving the right kidney. No evidence of medical renal disease or hydronephrosis. 2. 2 simple left renal cysts. 3. Left nephrolithiasis and large urinary bladder calculus. Renal Parenchymal Thickness Parenchyma = Cortex + Medullary Pyramid - Normal >= 1.5 cm - Mild thinning = 1.0-1.49 cm - Moderate thinning = 0.5-0.99 cm - Severe thinning < 0.5 cm Signer Name: Aaron Dubon MD Signed: 06/20/2021 12:32 PM Workstation Name: [id number]
[2021-06-20] MEDS: HYDROmorphone 1 MG/1 ML INJ IV PRN ×2 (13:44→23:34)
--- NOTE | 2021-06-20 15:45 | Progress Note ---
Assessment and Plan 86 yo M with 1. abd pain 2. near colonic obstruction secondary to left colon mass 3. SILAS Plan: 1. NPO 2. prn pain control 3. DVT ppx 4. Cards c/s for preop risk assessment 5. Gi notes reviewed - agree with recs 6. Spoke again with patient's sons Ti and Calvin. Explained that patient has near complete colon obstruction due to left colon pathology which is likely a mass. Discussed recommendation of surgery, to perform left hemicolectomy and likely ostomy. All questions answered. They are still undecided about surgery and want to discuss further with family members. I stressed to them the importance of making a decision soon because further dilatation of the right colon can lead to perforation. This was also discussed with patient. Everyone expressed understanding. Explained that if patient's condition worsened, this would become an emergency. Will follow. Thank you, please call with questions Subjective Date of service: 06/20/21 Narrative: Pt seen and examined. Complains of intermittent abdominal pain that travels around abdomen like gas. No n/v. Having some flatus and had BM consisting of stool and gastrograffin. Objective Vital Signs - 12hr 06/20/21 06/20/21 06/20/21 05:16 09:00 12:02 Temperature 98.9 F 98.1 F Pulse Rate 84 85 Respiratory 18 18 Rate Blood Pressure 131/65 154/73 O2 Sat by Pulse 93 98 97 Oximetry - General physical appearance Narrative Exam: Gen.: Awake, alert, oriented x3. No apparent distress ENT: Trachea midline. No lymphadenopathy. No scleral icterus or conjunctival pallor CV: S1, S2 present Respiratory: No audible wheezes Abdomen: Soft, distended (same as yesterday), nontender. No rebound, rigidity, guarding Extremities: No clubbing, cyanosis, edema - Labs 06/20/21 04:00 06/20/21 04:00 Diabetes panel 06/20/21 Range/Units 04:00 Sodium 139 (137-145) mmol/L Potassium 3.4 L (3.6-5.0) mmol/L Chloride 100.8 (98-107) mmol/L Carbon Dioxide 21 L (22-30) mmol/L BUN 36 H (9-20) mg/dL Creatinine 2.1 H (0.8-1.3) mg/dL Glucose 174 H (75-100) mg/dL Calcium 8.7 (8.4-10.2) mg/dL Calcium panel 06/20/21 Range/Units 04:00 Calcium 8.7 (8.4-10.2) mg/dL Pituitary panel 06/20/21 Range/Units 04:00 Sodium 139 (137-145) mmol/L Potassium 3.4 L (3.6-5.0) mmol/L Chloride 100.8 (98-107) mmol/L Carbon Dioxide 21 L (22-30) mmol/L BUN 36 H (9-20) mg/dL Creatinine 2.1 H (0.8-1.3) mg/dL Glucose 174 H (75-100) mg/dL Calcium 8.7 (8.4-10.2) mg/dL Adrenal panel 06/20/21 Range/Units 04:00 Sodium 139 (137-145) mmol/L Potassium 3.4 L (3.6-5.0) mmol/L Chloride 100.8 (98-107) mmol/L Carbon Dioxide 21 L (22-30) mmol/L BUN 36 H (9-20) mg/dL Creatinine 2.1 H (0.8-1.3) mg/dL Glucose 174 H (75-100) mg/dL Calcium 8.7 (8.4-10.2) mg/dL
[2021-06-21] MEDS: metroNIDAZOLE/NS 500 MG/100 ML 500 MG/100 ML BAG IV SCH (04:40)
[2021-06-21 06:02] VITALS: BP 128/104
[2021-06-21] MEDS: HEPARIN 5,000 UNIT/1 ML VIAL SUB-Q SCH (06:12)
[2021-06-21] MEDS: HYDROmorphone 1 MG/1 ML INJ IV PRN (06:27)
[2021-06-21 06:32] LABS: Basophils % (Auto) 0.6 % (0.0-1.8); Eosinophils % (Auto) 0.4 % (0.0-4.3); Hematocrit 44.6 % (35.5-45.6); Hemoglobin 14.6 gm/dl (11.8-15.2); Lymphocytes # (Auto) 0.7 K/mm3 (1.2-5.4); Lymphocytes % (Auto) 9.4 % (13.4-35.0); Mean Corpuscular HGB Conc 33 % (32-34); Mean Corpuscular Volume 89 fl (84-94); Monocytes # (Auto) 0.7 K/mm3 (0.0-0.8); Monocytes % (Auto) 9.1 % (0.0-7.3); Platelet Count 250 K/mm3 (140-440); Red Cell Distribution Width 14.3 % (13.2-15.2)
[2021-06-21 06:50] LABS: Calcium 9.5 mg/dL (8.4-10.2)
--- NOTE | 2021-06-21 08:43 | Progress Note ---
Assessment and Plan Assessment and plan: Colitis. Sepsis. Patient meets criteria given the tachycardia, tachypnea and diagnosis of colitis/UTI Diverticulosis Acute kidney injury likely secondary to vasomotor nephropathy. UTI Constipation Ureteral stent Hypertension 06/19/2021. CT scan completed earlier this morning reveals marked dilatation of the colon to the level of the splenic flexure. There is significant dilatation of the proximal with fecal material and fluid. There is marked thickening of the level at the splenic flexure. Findings represent diffuse colitis. Patient with colitis that is refractory to outpatient treatment. The patient will be restarted on antibiotics of Levaquin and Flagyl. We will reconsult GI and surgery for further evaluation. Start IV fluid hydration and follow-up BMP. 06/20/2021. Patient with possible left-sided colon mass. Ct scan A/P was performed and showed thickening of colon with dilation of right colon up to splenic flexure with large amount of retained stool. CT results along with barium enema suggestive of colon mass. Surgery explained surgical option of resection with likely colostomy. Patient to discuss next steps with 5 children. Patient has not made a decision as of yet. Continue antibiotics for UTI. Consult nephrology for acute kidney injury. Patient likely has some underlying chronic kidney disease. 06/21/2021. Dr. Morales spoke again with patient's sons Ti and Calvin. Explained that patient has near complete colon obstruction due to left colon pat hology which is likely a mass. She recommended surgery with left hemicolectomy and likely ostomy. All questions answered. They are still undecided about surgery and want to discuss further with family members. Dr. Morales stressed to them the importance of making a decision soon because further dilatation of the right colon can lead to perforation. This was also discussed with patient. Everyone expressed understanding. She explained that if patient's condition worsened, this would become an emergency. We will continue supportive care and keep patient n.p.o. Nephrology was consulted for acute kidney injury secondary to vasomotor nephropathy. Continue IV fluid hydration. History Interval history: No new issues overnight. Hospitalist Physical - Constitutional Vitals: Temp Pulse Resp BP Pulse Ox 98.1 F 84 20 128/104 95 06/21/21 05:04 06/21/21 05:04 06/21/21 05:04 06/21/21 05:04 06/21/21 05:04 General appearance: Present: no acute distress - EENT Eyes: Present: PERRL, EOM intact ENT: hearing intact, clear oral mucosa, dentition normal - Neck Neck: Present: supple, normal ROM - Respiratory Respiratory effort: normal Respiratory: bilateral: CTA - Cardiovascular Rhythm: regular Heart Sounds: Present: S1 & S2. Absent: gallop, rub - Extremities Extremities: no ischemia, No edema, Full ROM - Abdominal General gastrointestinal: soft, non-tender, non-distended, normal bowel sounds - Integumentary Integumentary: Present: clear, warm, dry - Neurologic Neurologic: CNII-XII intact, moves all extremities Results - Labs CBC & Chem 7: 06/21/21 04:00 06/21/21 04:00 Labs: Laboratory Last Values WBC 7.5 K/mm3 (4.5-11.0) 06/21/21 04:00 RBC 5.00 M/mm3 (3.65-5.03) 06/21/21 04:00 Hgb 14.6 gm/dl (11.8-15.2) 06/21/21 04:00 Hct 44.6 % (35.5-45.6) D 06/21/21 04:00 MCV 89 fl (84-94) 06/21/21 04:00 MCH 29 pg (28-32) 06/21/21 04:00 MCHC 33 % (32-34) 06/21/21 04:00 RDW 14.3 % (13.2-15.2) 06/21/21 04:00 Plt Count 250 K/mm3 (140-440) 06/21/21 04:00 Lymph % (Auto) 9.4 % (13.4-35.0) L 06/21/21 04:00 Keith % (Auto) 9.1 % (0.0-7.3) H 06/21/21 04:00 Eos % (Auto) 0.4 % (0.0-4.3) 06/21/21 04:00 Baso % (Auto) 0.6 % (0.0-1.8) 06/21/21 04:00 Lymph # (Auto) 0.7 K/mm3 (1.2-5.4) L 06/21/21 04:00 Keith # (Auto) 0.7 K/mm3 (0.0-0.8) 06/21/21 04:00 Eos # (Auto) 0.0 K/mm3 (0.0-0.4) 06/21/21 04:00 Baso # (Auto) 0.0 K/mm3 (0.0-0.1) 06/21/21 04:00 Add Manual Diff Complete 06/19/21 01:46 Total Counted 100 06/19/21 01:46 Seg Neutrophils % 80.5 % (40.0-70.0) H 06/21/21 04:00 Seg Neuts % (Manual) 86.0 % (40.0-70.0) H 06/19/21 01:46 Lymphocytes % (Manual) 12.0 % (13.4-35.0) L 06/19/21 01:46 Monocytes % (Manual) 2.0 % (0.0-7.3) 06/19/21 01:46 Nucleated RBC % Not Reportable 06/19/21 01:46 Seg Neutrophils # 6.0 K/mm3 (1.8-7.7) 06/21/21 04:00 Seg Neutrophils # Man 5.6 K/mm3 (1.8-7.7) 06/19/21 01:46 Band Neutrophils # 0.0 K/mm3 06/19/21 01:46 Lymphocytes # (Manual) 0.8 K/mm3 (1.2-5.4) L 06/19/21 01:46 Abs React Lymphs (Man) 0.0 K/mm3 06/19/21 01:46 Monocytes # (Manual) 0.1 K/mm3 (0.0-0.8) 06/19/21 01:46 Eosinophils # (Manual) 0.0 K/mm3 (0.0-0.4) 06/19/21 01:46 Basophils # (Manual) 0.0 K/mm3 (0.0-0.1) 06/19/21 01:46 Metamyelocytes # 0.0 K/mm3 06/19/21 01:46 Myelocytes # 0.0 K/mm3 06/19/21 01:46 Promyelocytes # 0.0 K/mm3 06/19/21 01:46 Blast Cells # 0.0 K/mm3 06/19/21 01:46 WBC Morphology Not Reportable 06/19/21 01:46 Hypersegmented Neuts Not Reportable 06/19/21 01:46 Hyposegmented Neuts Not Reportable 06/19/21 01:46 Hypogranular Neuts Not Reportable 06/19/21 01:46 Smudge Cells Not Reportable 06/19/21 01:46 Toxic Granulation Not Reportable 06/19/21 01:46 Toxic Vacuolation Not Reportable 06/19/21 01:46 Dohle Bodies Not Reportable 06/19/21 01:46 Pelger-Huet Anomaly Not Reportable 06/19/21 01:46 Geovanni Rods Not Reportable 06/19/21 01:46 Platelet Estimate Consistent w auto 06/19/21 01:46 Clumped Platelets Not Reportable 06/19/21 01:46 Plt Clumps, EDTA Not Reportable 06/19/21 01:46 Large Platelets Not Reportable 06/19/21 01:46 Giant Platelets Not Reportable 06/19/21 01:46 Platelet Satelliting Not Reportable 06/19/21 01:46 Plt Morphology Comment Not Reportable 06/19/21 01:46 RBC Morphology Normal 06/19/21 01:46 Dimorphic RBCs Not Reportable 06/19/21 01:46 Polychromasia Not Reportable 06/19/21 01:46 Hypochromasia Not Reportable 06/19/21 01:46 Poikilocytosis Not Reportable 06/19/21 01:46 Anisocytosis Not Reportable 06/19/21 01:46 Microcytosis Not Reportable 06/19/21 01:46 Macrocytosis Not Reportable 06/19/21 01:46 Spherocytes Not Reportable 06/19/21 01:46 Pappenheimer Bodies Not Reportable 06/19/21 01:46 Sickle Cells Not Reportable 06/19/21 01:46 Target Cells Not Reportable 06/19/21 01:46 Tear Drop Cells Not Reportable 06/19/21 01:46 Ovalocytes Not Reportable 06/19/21 01:46 Helmet Cells Not Reportable 06/19/21 01:46 Alvares-Ackworth Bodies Not Reportable 06/19/21 01:46 Bowler Rings Not Reportable 06/19/21 01:46 Pura Cells Not Reportable 06/19/21 01:46 Bite Cells Not Reportable 06/19/21 01:46 Crenated Cell Not Reportable 06/19/21 01:46 Elliptocytes Not Reportable 06/19/21 01:46 Acanthocytes (Spur) Not Reportable 06/19/21 01:46 Rouleaux Not Reportable 06/19/21 01:46 Hemoglobin C Crystals Not Reportable 06/19/21 01:46 Schistocytes Not Reportable 06/19/21 01:46 Malaria parasites Not Reportable 06/19/21 01:46 Jamar Bodies Not Reportable 06/19/21 01:46 Hem Pathologist Commnt No 06/19/21 01:46 Sodium 139 mmol/L (137-145) 06/21/21 04:00 Potassium 3.5 mmol/L (3.6-5.0) L 06/21/21 04:00 Chloride 99.7 mmol/L (98-107) 06/21/21 04:00 Carbon Dioxide 22 mmol/L (22-30) 06/21/21 04:00 Anion Gap 21 mmol/L 06/21/21 04:00 BUN 46 mg/dL (9-20) H 06/21/21 04:00 Creatinine 2.0 mg/dL (0.8-1.3) H 06/21/21 04:00 Estimated GFR 32 ml/min 06/21/21 04:00 BUN/Creatinine Ratio 23 % 06/21/21 04:00 Glucose 183 mg/dL (75-100) H 06/21/21 04:00 POC Glucose 179 mg/dL (70-105) H 06/19/21 12:18 Calcium 9.5 mg/dL (8.4-10.2) 06/21/21 04:00 Total Bilirubin 0.90 mg/dL (0.1-1.2) 06/19/21 01:46 Direct Bilirubin 0.3 mg/dL (0-0.2) H 06/19/21 01:46 Indirect Bilirubin 0.6 mg/dL 06/19/21 01:46 AST 32 units/L (5-40) 06/19/21 01:46 ALT 15 units/L (7-56) 06/19/21 01:46 Alkaline Phosphatase 115 units/L (35-129) 06/19/21 01:46 Ammonia 20.0 umol/L (25-60) L 06/19/21 08:36 Total Protein 6.1 g/dL (6.3-8.2) L D 06/19/21 01:46 Albumin 3.5 g/dL (3.9-5) L 06/19/21 01:46 Albumin/Globulin Ratio 1.3 % 06/19/21 01:46 Lipase 16 units/L (13-60) 06/19/21 01:46 Urine Color Alyse (Yellow) 06/19/21 Unknown Urine Turbidity Clear (Clear) 06/19/21 Unknown Urine pH 5.0 (5.0-7.0) 06/19/21 Unknown Ur Specific [place] 1.018 (1.003-1.030) 06/19/21 Unknown Urine Protein 100 mg/dl mg/dL (Negative) 06/19/21 Unknown Urine Glucose (UA) Neg mg/dL (Negative) 06/19/21 Unknown Urine Ketones Tr mg/dL (Negative) 06/19/21 Unknown Urine Blood Mod (Negative) 06/19/21 Unknown Urine Nitrite Neg (Negative) 06/19/21 Unknown Urine Bilirubin Neg (Negative) 06/19/21 Unknown Urine Urobilinogen < 2.0 mg/dL (<2.0) 06/19/21 Unknown Ur Leukocyte Esterase Sm (Negative) 06/19/21 Unknown Urine WBC (Auto) 36.0 /HPF (0.0-6.0) H 06/19/21 Unknown Urine RBC (Auto) 26.0 /HPF (0.0-6.0) 06/19/21 Unknown U Epithel Cells (Auto) 1.0 /HPF (0-13.0) 06/19/21 Unknown Urine Mucus Few /HPF 06/19/21 Unknown Blood Type O POSITIVE 06/19/21 10:12 Antibody Screen Negative 06/19/21 10:12 Burns/IV: Voiding Method Toilet Active Medications - Current Medications Current Medications: Generic Name Dose Route Start Last Admin Trade Name Freq PRN Reason Stop Dose Admin Acetaminophen 650 mg 06/19/21 08:38 Acetaminophen 325 Mg Tab PO Q4H PRN Pain MILD(1-3)/Fever >100.5/CERDA Hydrocodone Bitart/Acetaminophen 2 each 06/19/21 08:38 Hydrocodone/Acetaminophen 5-325 Mg Tab PO Q6H PRN Pain, Moderate (4-6) Bisacodyl 10 mg 10/29/21 08:38 Bisacodyl 10 Mg Rect Supp [place] QDAY PRN Constipation unrelieved by MOM Docusate Sodium 100 mg 06/19/21 10:00 06/20/21 22:34 Docusate Sodium 100 Mg Cap PO 100 mg BID MARIANA Administration Heparin Sodium (Porcine) 5,000 unit 06/19/21 14:00 06/21/21 06:12 Heparin 5,000 Unit/1 Ml Vial SUB-Q 5,000 unit Q8HR MARIANA Administration Hydromorphone HCl 0.25 mg 06/19/21 08:38 06/21/21 06:27 Hydromorphone 1 Mg/1 Ml Inj IV 0.25 mg Q4H PRN Administration Pain , Severe (7-10) Sodium Chloride 1,000 mls @ 75 mls/hr 06/19/21 08:45 06/20/21 06:14 Nacl 0.9% 1000 Ml IV 75 mls/hr DIRECT MARIANA Administration Levofloxacin/Dextrose 750 mg in 150 mls @ 100 mls/hr 06/20/21 22:00 06/20/21 22:34 Levaquin 750mg/150ml IV 100 mls/hr Q48H MARIANA Administration Protocol Metronidazole 500 mg in 100 mls @ 100 mls/hr 06/19/21 12:00 06/21/21 04:40 Flagyl 500 Mg/100 Ml IV 100 mls/hr Q8H MARIANA Administration Protocol Morphine Sulfate 2 mg 06/19/21 10:02 06/19/21 16:34 Morphine 2 Mg/1 Ml Inj IV 2 mg Q4H PRN Administration Pain, Moderate (4-6) Ondansetron HCl 4 mg 06/19/21 08:38 06/21/21 06:26 Ondansetron 4 Mg/2 Ml Inj IV 4 mg Q8H PRN Administration Nausea And Vomiting Sodium Chloride 10 ml 06/19/21 10:00 06/20/21 22:35 Sodium Chloride 0.9% 10 Ml Flush Syringe IV 10 ml BID MARIANA Administration Sodium Chloride 10 ml 06/19/21 08:38 Sodium Chloride 0.9% 10 Ml Flush Syringe IV PRN PRN LINE FLUSH Nutrition/Malnutrition Assess - Dietary Evaluation Nutrition/Malnutrition Findings: Nutrition Notes Start: 06/20/21 10:35 Freq: Status: Active Protocol: Document 10/30/21 10:35 CW (Rec: 06/20/21 10:41 CW [id number]) Nutrition Notes Need for Assessment generated from: MST Initial or Follow up Assessment Current Diagnosis Acute Kidney Injury,Diabetes, Sepsis,Hypertension Other Pertinent Diagnosis intractable abd pain, colon obstruction Current Diet NPO Labs/Tests K 3.4 BUN 36 Cr 2.1 BG 174 HgbA1c of 8.3 (06/15) Pertinent Medications NS at 75 ml/hr Height 5 ft 7 in Weight 70.76 kg [place] Body Weight (kg) 67.27 BMI 24.4 Intake Prior to Admission Poor Subjective/Other Information Screen for MST. Pt readmitted following discharge on 06/15. Previous visit was d/t diverticulitis. PO intake during previous visit was poor . Per EHR, pt has missing teeth. Pt unavailable at time of visit d/t procedure. 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 Is patient on ventilator? No Is Patient Ambulatory and/or Out of Bed Yes REE-([facility]-ambulatory/OOB) [ [id number] [id number]] Calculation Used for Recommendations [facility] Additional Notes protein needs:71 - 85 (1 - 1.2 g/kgBW) fluid needs: 1 ml/kcal or per MD order Nutrition Intervention Change Diet Order: diet advancement when medically feasible Goal #1 Meet at least 75% of kcal and protein needs via PO once diet advances Anticipated Discharge Needs: unable to determine at this time Follow-Up By: 06/22/21 Additional Comments F/U for diet advacnement, ONS
--- NOTE | 2021-06-21 09:15 | Progress Note ---
Assessment and Plan 1. Acute kidney injury: Vasomotor SILAS superimposed on CKD in the setting of volume depletion. ATN. Imaging negative for hydro. Urine studies ordered. Continue IV fluids. Monitor renal function. Avoid nephrotoxic agents. Meds dosage based on GFR. 2. FEN: Hypokalemia, replete K, monitor. Anion-gap metabolic acidosis, 2/2 SILAS, IV fluids, monitor. Monitor lytes and volume status. 3. Colitis, POA: Followed by GI and General surgery. 4. Sepsis. 5. UTI. 6. Ureteral stent. 7. Hypertension. 8. DM-2: A1C 8.3. Subjective: Patient was seen and examined at the bedside. Examination: General appearance: well-developed, appears stated age, no distress HEENT: atraumatic Neck: trachea midline Respiratory: ctab Heart: S1S2, regular, no murmur Abdomen: soft, bowel sounds heard, distended, NT Integumentary: no obvious rash Neurologic: AO, able to move extremities Ext: no edema Subjective Date of service: 06/21/21 Principal diagnosis: Colon Obstruction Objective - Vital Signs Vital signs: Vital Signs - 12hr 06/20/21 06/21/21 21:42 05:04 Temperature 99.0 F 98.1 F Pulse Rate 95 H 84 Respiratory 19 20 Rate Blood Pressure 157/84 128/104 O2 Sat by Pulse 97 95 Oximetry - Lab 06/21/21 04:00 06/21/21 04:00 Most recent lab results Calcium 9.5 mg/dL (8.4-10.2) 06/21/21 04:00 Medications & Allergies - Medications Allergies/Adverse Reactions: Allergies Penicillins Allergy (Verified 06/16/21 03:39) Anaphylaxis red dye Adverse Reaction (Verified 06/15/21 21:43) Anaphylaxis Home Medications: Home Medications Medication Instructions Recorded Confirmed Last Taken Type Docusate Sodium [Colace] 100 mg PO BID PRN #20 capsule 06/16/21 06/19/21 06/18/21 Rx Glucophage 500 mg PO BID 06/17/21 06/19/21 06/18/21 History Losartan [Cozaar] 100 mg PO QDAY tablet 06/18/21 06/19/21 06/18/21 Rx Sennosides 8.6 mg PO Q12HR PRN 30 Days #60 06/18/21 06/19/2121 Rx tablet hydroCHLOROthiazide [HCTZ] 25 mg PO QDAY 30 Days #30 tablet 06/18/21 06/19/21 06/18/21 Rx levoFLOXacin [Levaquin TAB] 500 mg PO Q24HR 3 Days #3 tablet 06/18/21 06/19/21 06/18/21 Rx metFORMIN [Glucophage] 500 mg PO BID 30 Days #60 tablet 06/18/21 06/19/21 06/18/21 Rx metroNIDAZOLE [Flagyl] 500 mg PO Q8HR 3 Days #9 tablet 06/18/21 06/19/21 06/18/21 Rx Active Medications: Generic Name Dose Route Start Last Admin Trade Name Freq PRN Reason Stop Dose Admin Acetaminophen 650 mg 06/19/21 08:38 Acetaminophen 325 Mg Tab PO Q4H PRN Pain MILD(1-3)/Fever >100.5/CERAD Hydrocodone Bitart/Acetaminophen 2 each 06/19/21 08:38 Hydrocodone/Acetaminophen 5-325 Mg Tab PO Q6H PRN Pain, Moderate (4-6) Bisacodyl 10 mg 06/19/21 08:38 Bisacodyl 10 Mg Rect Supp [place] QDAY PRN Constipation unrelieved by MOM Docusate Sodium 100 mg 06/19/21 10:00 06/20/21 22:34 Docusate Sodium 100 Mg Cap PO 100 mg BID MARIANA Administration Heparin Sodium (Porcine) 5,000 unit 06/19/21 14:00 06/21/21 06:12 Heparin 5,000 Unit/1 Ml Vial SUB-Q 5,000 unit Q8HR MARIANA Administration Hydromorphone HCl 0.25 mg 06/19/21 08:38 06/21/21 06:27 Hydromorphone 1 Mg/1 Ml Inj IV 0.25 mg Q4H PRN Administration Pain , Severe (7-10) Sodium Chloride 1,000 mls @ 75 mls/hr 06/19/21 08:45 06/20/21 06:14 Nacl 0.9% 1000 Ml IV 75 mls/hr DIRECT MARIANA Administration Levofloxacin/Dextrose 750 mg in 150 mls @ 100 mls/hr 06/20/21 22:00 06/20/21 22:34 Levaquin 750mg/150ml IV 100 mls/hr Q48H MARIANA Administration Protocol Metronidazole 500 mg in 100 mls @ 100 mls/hr 06/19/21 12:00 06/21/21 04:40 Flagyl 500 Mg/100 Ml IV 100 mls/hr Q8H MARIANA Administration Protocol Morphine Sulfate 2 mg 06/19/21 10:02 06/19/21 16:34 Morphine 2 Mg/1 Ml Inj IV 2 mg Q4H PRN Administration Pain, Moderate (4-6) Ondansetron HCl 4 mg 06/19/21 08:38 06/21/21 06:26 Ondansetron 4 Mg/2 Ml Inj IV 4 mg Q8H PRN Administration Nausea And Vomiting Sodium Chloride 10 ml 06/19/21 10:00 06/20/21 22:35 Sodium Chloride 0.9% 10 Ml Flush Syringe IV 10 ml BID MARIANA Administration Sodium Chloride 10 ml 06/19/21 08:38 Sodium Chloride 0.9% 10 Ml Flush Syringe IV PRN PRN LINE FLUSH
[2021-06-21] MEDS ORDERED: POTASSIUM CHLORIDE 10 MEQ 10 MEQ/100 ML BAG IV SCH (10:00)
--- NOTE | 2021-06-21 10:07 | Gastroenterology Progress Note ---
Assessment and Plan - Patient Problems (1) Colonic obstruction Current Visit: Yes Status: Acute Plan to address problem: - Results of the gastrograffin enema noted. Essentially no passage of contrast proximal, indicative of almost complete obstruction. - I recommend surgical intervention, but the patient still has not made up his mind (waiting on family to make the decision). - A colonoscopy at this point, for biopsies, would increase the risk of perforation, and would not records management director - a benign stricture (unlikely) or a mass of this degree would both need resection. - He has stabilized on IV abx, and there is a small chance this is an i nflammatory stricture from diverticulitis; would continue for now. Subjective Date of service: 06/21/21 Principal diagnosis: Colon Obstruction Interval history: The patient has abdominal pain, diffuse, but it is improved from yesterday, and he is passing flatus and trace amounts of stool. No vomiting at present. Denies F/C overnight. Objective - Constitutional Vitals: Temp Pulse Resp BP Pulse Ox 98.1 F 84 20 128/104 95 06/21/21 05:04 06/21/21 05:04 06/21/21 05:04 06/21/21 05:04 06/21/21 05:04 General appearance: no acute distress - Respiratory Respiratory effort: normal Respiratory: bilateral: CTA - Cardiovascular Rhythm: regular Heart Sounds: Present: S1 & S2 - Gastrointestinal General gastrointestinal: Present: soft, tender (Less tender than yesterday), distended (Moderate distention, slightly improved) - Labs CBC & Chem 7: 06/21/21 04:00 06/21/21 04:00 Labs: Laboratory Results - last 24 hr 06/21/21 06/21/21 04:00 04:00 WBC 7.5 RBC 5.00 Hgb 14.6 Hct 44.6 D MCV 89 MCH 29 MCHC 33 RDW 14.3 Plt Count 250 Lymph % (Auto) 9.4 L [place] % (Auto) 9.1 H Eos % (Auto) 0.4 Baso % (Auto) 0.6 Lymph # (Auto) 0.7 L [place] # (Auto) 0.7 Eos # (Auto) 0.0 Baso # (Auto) 0.0 Seg Neutrophils % 80.5 H Seg Neutrophils # 6.0 Sodium 139 Potassium 3.5 L Chloride 99.7 Carbon Dioxide 22 Anion Gap 21 BUN 46 H Creatinine 2.0 H Estimated GFR 32 BUN/Creatinine Ratio 23 Glucose 183 H Calcium 9.5
--- NOTE | 2021-06-21 10:36 | Discharge Summary ---
Providers - Providers Date of Admission: 06/19/21 08:38 Date of discharge: 06/21/21 Attending physician: KAITLIN PERALES 06/19/21 08:38 Consult to Physician [CONS] Routine Comment: Consulting Provider: EVIE GARCIA Physician Instructions: Reason For Exam: Colitis 06/19/21 08:43 Consult to Physician [CONS] Routine Comment: Consulting Provider: ADWOA ARGUELLES Physician Instructions: Reason For Exam: colitis 06/20/21 08:59 Consult to Physician [CONS] Routine Comment: Consulting Provider: SHEELA OCHOA Physician Instructions: Reason For Exam: SILAS 06/20/21 15:43 Consult to Physician [CONS] Routine Comment: Consulting Provider: BLADIMIR GIRON Physician Instructions: Reason For Exam: preop risk assessment Primary care physician: SILVANA JORDAN Hospitalization Reason for admission: abd pain Condition: Critical Hospital course: 86-year-old male with past medical history of hypertension, [id number] diabetes and left-sided ureteral stent presents to the emergency department with complaints of abdominal pain. The patient was recently admitted here on 06/16 and discharged on 06/18 for same complaints. The patient was admitted with diagnosis of diverticulitis. CT scan completed on that admission revealed Dilatation of colon, inflammatory wall thickening surrounding the entire colon and thickening of the descending colon. The patient was treated with Cipro/Flagyl. GI and surgery saw the patient in consultation. KUB 06/17/21- dilatation of colon similar to CT scan A/P. Plans were for the patient to have colonoscopy as an outpatient. Patient had a bowel movement on 06/18 and was felt could be discharged home per Dr. De Leon, GI and surgery. Patient now returns with similar complaints of abdominal pain. Patient reports not having a bowel movement since his discharge and reports the pain is 10/10. No fever chills. CT scan completed earlier this morning reveals marked dilatation of the colon to the level of the splenic flexure. There is significant dilatation of the proximal with fecal material and fluid. There is marked thickening of the level at the splenic flexure. The patient was initially admitted with diagnosis of colitis, abdominal pain, sepsis, diverticulosis, acute kidney injury with vasomotor nephropathy, UTI, cons tipation, ureteral stent and hypertension. The patient was later seen by general surgery who felt that the CT findings more represented colonic dilatation and possible left-sided colon mass. Additional testing was completed with barium enema which was suggestive of a colon mass. Surgery explained surgical option of resection with likely colostomy. Patient wanted to discuss next steps with [address] Garcia (general surgeon) spoke again with patient's sons Ti and Calvin. Explained that patient has near complete colon obstruction due to left colon pathology which is likely a mass. She recommended surgery with left hemicolectomy and likely ostomy. All questions answered. They were still undecided about surgery and want to discuss further with family members. Dr. Garcia stressed to them the importance of making a decision soon because further dilatation of the right colon can lead to perforation. This was also discussed with patient. Everyone expressed understanding. She explained that if patient's condition worsened, this would become an emergency. The patient was continued on IV fluid hydration for acute kidney injury and vasomotor nephropathy. The son reported that the family decided today to discharge the patient AMA. The risks were expressed to the son and patient regarding possible perforation and or with leaving AMA. The son expressed understanding. Son reported that they would like to attempt transfer to [facility]. I called [facility] and they had no bed availability and also expressed the likelihood of acceptance is low given that this will be a lateral transfer. I expressed to the son that in the interim the patient could deteriorate quickly and again expressed possibility for perforation and/or . I also expressed that this is a procedure that is of urgent necessity and to wait on bed availability, possible acceptance but more likely denial to [facility] is not ideal. I told the son that waiting on a bed is truly not a viable option. Son expressed understanding. I discussed with Dr. Garcia as well who is in agreement that the patient is to stay but patient and son decided to leave AMA. Dedicated discharge time 32 minutes Disposition: 07 LEFT AGAINST MEDICAL ADVICE Final Discharge Diagnosis (Prints w/discharge instructions): Abdominal pain, new colonic obstruction secondary to left colon mass, acute kidney injury, vasomotor nephropathy Time spent for discharge: 32 Core Measure Documentation - Palliative Care Palliative Care/ Comfort Measures: Not Applicable - Core Measures Any of the following diagnoses?: none Exam - Constitutional Vitals: Temp Pulse Resp BP Pulse Ox 98.1 F 84 20 128/104 95 06/21/21 05:04 06/21/21 05:04 06/21/21 05:04 06/21/21 05:04 06/21/21 05:04 General appearance: Present: no acute distress, well-nourished - EENT Eyes: Present: PERRL ENT: hearing intact, clear oral mucosa - Neck Neck: Present: supple, normal ROM - Respiratory Respiratory effort: normal Respiratory: bilateral: CTA - Cardiovascular Heart Sounds: Present: S1 & S2. Absent: rub, click - Extremities Extremities: pulses symmetrical, No edema Peripheral Pulses: within normal limits - Abdominal General gastrointestinal: Present: soft, non-tender, non-distended, normal bowel sounds Male genitourinary: Present: normal - Integumentary Integumentary: Present: clear, warm, dry - Musculoskeletal Musculoskeletal: gait normal, strength equal bilaterally - Psychiatric Psychiatric: appropriate mood/affect, intact judgment & insight - Neurologic Neurologic: CNII-XII intact, moves all extremities Plan Follow up with: SILVANA JORDAN MD [Primary Care Provider] - 3-5 Days
--- NOTE | 2021-06-21 11:57 | Event Note ---
Date: 06/21/21 Mr. Lemus a 86 years old male with history of HTN and DM has been hospitalized for obstructive colon; Cardiology is consulted for pre-op cardiac evaluation. I reviewed patient's chart and labs. When I stepped in patient's room, patient's family told me that they are signing out AMA and did not want me to proceed my examination. Informed the primary team.
--- NOTE | 2021-06-21 14:05 | Progress Note ---
Subjective Date of service: 06/21/21 Objective Vital Signs - 12hr 06/21/21 05:04 Temperature 98.1 F Pulse Rate 84 Respiratory 20 Rate Blood Pressure 128/104 O2 Sat by Pulse 95 Oximetry - Labs 06/21/21 04:00 06/21/21 04:00 Diabetes panel 06/21/21 Range/Units 04:00 Sodium 139 (137-145) mmol/L Potassium 3.5 L (3.6-5.0) mmol/L Chloride 99.7 (98-107) mmol/L Carbon Dioxide 22 (22-30) mmol/L BUN 46 H (9-20) mg/dL Creatinine 2.0 H (0.8-1.3) mg/dL Glucose 183 H (75-100) mg/dL Calcium 9.5 (8.4-10.2) mg/dL Calcium panel 06/21/21 Range/Units 04:00 Calcium 9.5 (8.4-10.2) mg/dL Pituitary panel 06/21/21 Range/Units 04:00 Sodium 139 (137-145) mmol/L Potassium 3.5 L (3.6-5.0) mmol/L Chloride 99.7 (98-107) mmol/L Carbon Dioxide 22 (22-30) mmol/L BUN 46 H (9-20) mg/dL Creatinine 2.0 H (0.8-1.3) mg/dL Glucose 183 H (75-100) mg/dL Calcium 9.5 (8.4-10.2) mg/dL Adrenal panel 06/21/21 Range/Units 04:00 Sodium 139 (137-145) mmol/L Potassium 3.5 L (3.6-5.0) mmol/L Chloride 99.7 (98-107) mmol/L Carbon Dioxide 22 (22-30) mmol/L BUN 46 H (9-20) mg/dL Creatinine 2.0 H (0.8-1.3) mg/dL Glucose 183 H (75-100) mg/dL Calcium 9.5 (8.4-10.2) mg/dL
== END 2021-06-21 11:00 | disposition left against medical advice (07) | DRG 871 ==
LOC: ED 00:19 → 3A 03:45 → OBSVTOIN 08:38 → 3A 09:05
PROVIDERS: ADMIT Internal Medicine Geriatric Medicine; ATTEND Hospitalist
DX: A41.9 Sepsis, unspecified organism (principal); N17.0 Acute kidney failure with tubular necrosis; K56.699 Other intestinal obstruction unspecified as to partial versus complete obstruction; N39.0 Urinary tract infection, site not specified; K52.9 Noninfective gastroenteritis and colitis, unspecified; R19.09 Other intra-abdominal and pelvic swelling, mass and lump; K57.90 Diverticulosis of intestine, part unspecified, without perforation or abscess without bleeding; Z88.0 Allergy status to penicillin; Z91.048 Other nonmedicinal substance allergy status; Z79.899 Other long term (current) drug therapy; Z79.84 Long term (current) use of oral hypoglycemic drugs; K59.00 Constipation, unspecified; I12.9 Hypertensive chronic kidney disease with stage 1 through stage 4 chronic kidney disease, or unspecified chronic kidney disease; E11.22 Type 2 diabetes mellitus with diabetic chronic kidney disease; N18.30 Chronic kidney disease, stage 3 unspecified; Z53.29 Procedure and treatment not carried out because of patient's decision for other reasons
CPT/HCPCS: 36415; 74176; 74270; 76770; 80048; 80076; 81001; 82140; 82962; 83690; 85007; 85025; 86850; 86900; 86901; 87045; 87086; G0378; J1170; J1644; J1956; J2270; J2405; J3480; J7030; Q9963